=== PATIENT | female | born 1985 | race Caucasian/White ===

== ENCOUNTER → 2016-06-09 | Outpatient (CLI) | payer OTHER ==
[~2016-06-09] MED LIST: ACET-789 PO; ACET473E5 PO; BARIUM SUSPENSION 105% (LIQUID POLIBAR PLUS) 240 ML/DOSE PO ONE; BARIUM SUSPENSION 60% (LIQUID EZ PAQUE) 240 ML DOSE PO ONE; CEFD300C3 PO; CEPH500C PO; FLC1T PO; FOLI0.4T2 PO; FRS325T PO; IBP600T1 PO; IBP800T PO; LEVO1TAB9; LEVO1TAB9 PO; LEVO500T80 PO; MAG355OR55 PO; MECL-106 PO; NORG1TAB15; NYST1000; NYST1000 PO; ONDA4TAB10 PO; ONDA8TAB9 PO; ONDAN4ODT PO; ONDN4T PO; OXYC-109 PO; OXYC-12 PO; OXYC-197 PO; PANT40TA3 PO; PREN1TAB39 PO
--- NOTE | 2016-06-09 10:01 | Diagnostic Imaging Report ---
EXAMINATION: Upper GI study, double contrast. Highway Patrol Officer image of the abdomen was performed. After the oral administration of gas forming granules, the patient drank thick and thin barium with visualization under fluoroscopy, with spot images taken over the esophagus, stomach and duodenum and followed by overhead images in the chest and abdomen. INDICATION: Reflux. FLUOROSCOPY TIME: One minutes and 9 seconds. FINDINGS: Highway Patrol Officer images of the abdomen demonstrate small to moderate amount of fecal material. The esophagus demonstrates normal caliber with no strictures. The mucosal pattern demonstrates no filling defects, diverticulum or ulceration. There is normal relaxation of the distal sphincter. There is no hiatal hernia. The stomach demonstrates normal distensibility with normal appearance of the mucosal folds. There are no ulcers or evidence of mass. The duodenal bulb and sweep appear normal. IMPRESSION: Unremarkable double-contrast upper GI study. Dictated by: Dictated on workstation # [id number]
== END ==
LOC: RAD 08:31
PROVIDERS: ATTEND Surgery Pediatric Surgery
DX: K21.9 Gastro-esophageal reflux disease without esophagitis (principal)
CPT/HCPCS: 74241

== ENCOUNTER 2016-08-27 16:22 | Emergency (ER) | payer OTHER ==
[~2016-08-27] VITALS: Ht 172.7 cm; Wt 108.9 kg
[~2016-08-27 16:22] MED LIST changes: -BARIUM SUSPENSION 105% (LIQUID POLIBAR PLUS) 240 ML/DOSE PO ONE; -BARIUM SUSPENSION 60% (LIQUID EZ PAQUE) 240 ML DOSE PO ONE; -CEFD300C3 PO; -LEVO1TAB9; -LEVO1TAB9 PO; -LEVO500T80 PO; -MECL-106 PO; -NORG1TAB15; -NYST1000; -NYST1000 PO; -ONDA4TAB10 PO; -ONDA8TAB9 PO; -OXYC-197 PO; -PANT40TA3 PO
[2016-08-27 16:51] LABS: BILIRUBIN,URINE NEGATIVE (NEGATIVE); KETONES,URINE 4+ (NEGATIVE); LEUKOCYTE ESTERASE ,URINE 1+ (NEGATIVE); NITRITE,URINE NEGATIVE (NEGATIVE); PH,URINE 6 (5-9); PROTEIN,URINE 2+ (NEGATIVE); UROBILINOGEN,URINE 1 MG/DL (NORMAL)
[2016-08-27] MEDS ORDERED: LEVO500T80 PO (16:56)
[2016-08-27] MEDS ORDERED: PANT40TA3 PO (16:57)
[2016-08-27] MEDS ORDERED: LEVO1TAB9 (16:57)
[2016-08-27] MEDS ORDERED: NYST1000 (16:57)
[2016-08-27 17:02] LABS: CALCIUM OXALATE CRYSTALS,UR FEW /LPF; SQUAMOUS EPITHELIAL CELL,UR 25-50 /HPF
[2016-08-27 17:19] LABS: BASOPHILS % (AUTO) 0 % (0-10); EOSINOPHILS # (AUTO) 0.1 10^3/uL (0.0-0.3); EOSINOPHILS % (AUTO) 1 % (0-10); LYMPHOCYTES # (AUTO) 3.2 X 10^3 (1.0-4.0); LYMPHOCYTES % (AUTO) 49 % (12-44); MEAN CORPUSCULAR HEMOGLOBIN 29 PG (25-34); MEAN CORPUSCULAR HGB CONC 33 G/DL (32-36); MEAN CORPUSCULAR VOLUME 86 FL (80-99); MEAN PLATELET VOLUME 11.8 FL (7.4-10.4); MONOCYTES # (AUTO) 0.6 X 10^3 (0.0-1.0); MONOCYTES % (AUTO) 9 % (0-12); NEUTROPHILS # (AUTO) 2.7 X 10^3 (1.8-7.8); NEUTROPHILS % (AUTO) 41 % (42-75); PLATELET COUNT 283 10^3/uL (130-400); RED BLOOD COUNT 4.69 10^6/uL (4.35-5.85); RED CELL DISTRIBUTION WIDTH 12.6 % (10.0-14.5); WHITE BLOOD COUNT 6.5 10^3/uL (4.3-11.0)
--- NOTE | 2016-08-27 17:27 | ED Back Pain ---
General Chief Complaint: Back Problems Stated Complaint: BACK PAIN Source of Information: Patient Exam Limitations: No Limitations History of Present Illness Time Seen by Provider: 17:24 Initial Comments The patient is a 31-year-old white female who presents with complaints of left flank pain and chills. She reports that the symptoms have been present since Tuesday. She was diagnosed as having a urinary tract infection elsewhere and given Levaquin. There is been no improvement in symptoms. There is no previous history of kidney stones. She is not on her period. Timing/Duration: 4-5 Days Pain/Injury Location: Back Method of Injury: Other Allergies and Home Medications Allergies Coded Allergies: Penicillins (Verified Allergy, 02/28/12) RASH Home Medications Ferrous Sulfate 325 Mg Tablet, 1 TAB PO BID, #30 (Reported) Levofloxacin 500 Mg Tablet, 500 MG PO DAILY, #7 (Reported) Levonorgestrel-Ethin Estradiol 1 Each Tablet, #28 (Reported) Nystatin 100,000 Unit/1 Ml Oral.susp, #250 (Reported) Oxycodone Hcl/Acetaminophen 1 Each Tablet, 1 EACH PO Q4H, #20 As needed for breakthrough pain Prescribed by: FRANCISCO SEGURA on 02/22/122107 Pantoprazole Sodium 40 Mg Tablet., #30 (Reported) Vits W-Ca,Fe,Fa(<1MG) 1 Each Tablet, 1 EACH PO DAILY, (Reported) Constitutional: see HPI EENTM: no symptoms reported Respiratory: no symptoms reported Cardiovascular: no symptoms reported Gastrointestinal: no symptoms reported Genitourinary: see HPI Musculoskeletal: no symptoms reported Skin: no symptoms reported Psychiatric/Neurological: No Symptoms Reported Past Qiuzbyg-Ddyias-Adydgx Hx Patient Social History Recent Foreign Travel: No Contact w/Someone Who Travel: No Immunizations Up To Date Date of Influenza Vaccine: Feb 22, 2012 Respiratory Hx Respiratory Disorders: Yes (Influenza) Cardiovascular Hx Cardiac Disorders: No Neurological Hx Neurological Disorders: No Reproductive System Hx Reproductive Disorders: No Genitourinary Hx Genitourinary Disorders: Yes (bladder infection with current 2011) Gastrointestinal Hx Gastrointestinal Disorders: Yes (gall stones) Musculoskeletal Hx Musculoskeletal Disorders: No Endocrine Hx Endocrine Disorders: No HEENT HX ENT Disorders: No Psychosocial Hx Psychiatric Problems: No Blood Transfusions Hx Blood Disorders: Yes Physical Exam Vital Signs Capillary Refill : General Appearance: Mild Distress HEENT: Normal ENT Inspection Neck: Normal Inspection Cardiovascular: Regular Rate, Rhythm, No Edema, No Gallop, No JVD, No Murmur, Normal Peripheral Pulses Respiratory: Chest Non Tender, Lungs Clear, Normal Breath Sounds, No Accessory Muscle Use, No Respiratory Distress, Accessory Muscle Use Gastrointestinal: Normal Bowel Sounds, No Organomegaly, No Pulsatile Mass, Non Tender, Soft Back: CVA Tenderness (L) Neurologic/Psychiatric: Alert, Oriented x3, No Motor/Sensory Deficits, Normal Mood/Affect, 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 II-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 Norm as Tested, Abnormal Cerebellar Tests Skin: Normal Color, Warm/Dry, Cool, Cyanosis Progress/Results/Core Measures Results/Orders Lab Results Laboratory Tests Test 08/27/16 16:10 08/27/16 17:12 Range/Units Urine Color YELLOW Urine Clarity SLIGHTLY CLOUDY Urine pH 6 5-9 Urine Specific [place] 1.025 H 1.016-1.022 Urine Protein 2+ H NEGATIVE Urine Glucose (UA) NEGATIVE NEGATIVE Urine Ketones 4+ H NEGATIVE Urine Nitrite NEGATIVE NEGATIVE Urine Bilirubin NEGATIVE NEGATIVE Urine Urobilinogen 1 NORMAL MG/DL Urine Leukocyte Esterase 1+ H NEGATIVE Urine RBC (Auto) 5+ H NEGATIVE Urine RBC 25-50 H /HPF Urine WBC 5-10 H /HPF Urine Squamous Epithelial Cells 25-50 H /HPF Urine Crystals PRESENT H /LPF Urine Calcium Oxalate Crystals FEW H /LPF Urine Bacteria MODERATE H /HPF Urine Casts NONE /LPF Urine Mucus LARGE H /LPF Urine Culture Indicated YES White Blood Count 6.5 4.3-11.0 10^3/uL Red Blood Count 4.69 4.35-5.85 10^6/uL Hemoglobin 13.4 11.5-16.0 G/DL Hematocrit 40 35-52 % Mean Corpuscular Volume 86 80-99 FL Mean Corpuscular Hemoglobin 29 25-34 PG Mean Corpuscular Hemoglobin Concent 33 32-36 G/DL Red Cell Distribution Width 12.6 10.0-14.5 % Platelet Count 283 130-400 10^3/uL Mean Platelet Volume 11.8 H 7.4-10.4 FL Neutrophils (%) (Auto) 41 L 42-75 % Lymphocytes (%) (Auto) 49 H 12-44 % Monocytes (%) (Auto) 9 0-12 % Eosinophils (%) (Auto) 1 0-10 % Basophils (%) (Auto) 0 0-10 % Neutrophils # (Auto) 2.7 1.8-7.8 X 10^3 Lymphocytes # (Auto) 3.2 1.0-4.0 X 10^3 Monocytes # (Auto) 0.6 0.0-1.0 X 10^3 Eosinophils # (Auto) 0.1 0.0-0.3 10^3/uL Basophils # (Auto) 0.0 0.0-0.1 10^3/uL My Orders Orders - JCARLOS ROQUE MD Ua Culture If Indicated (08/27/16 16:44) Cbc With Automated Diff (08/27/16 16:56) Urine Culture (08/27/16 16:10) Ct Abd/Pelvis Wo(Kidney Stone) (08/27/16 17:17) Departure Communication Progress Notes CT scan by my reading shows no evidence of ureteral stones or hydroureter. There appeared to be several stones in the kidney proper. Impression Impression: Primary Impression: urinary tract infection Disposition: 01 HOME, SELF-CARE Condition: Stable/Unchanged Departure-Patient Inst. Decision time for Depature: 17:57 Referrals: MAURICIO KLEIN MD (PCP/Family) Primary Care Physician Add. Discharge Instructions: All discharge instructions reviewed with patient and/or family. Voiced understanding. Take Omnicef as directed. Use Motrin 60 for fever and discomfort 4 times daily or Tylenol 650 every 4 hours. Scripts Cefdinir (Cefdinir) 300 Mg Capsule 300 MG PO twice a day, #14 CAP Prov: JCARLOS ROQUE MD 08/27/16 JCARLOS ROQUE MD Aug 27, 2016 17:27
--- NOTE | 2016-08-27 17:56 | Diagnostic Imaging Report ---
PROCEDURE: CT urinary tract, rule out kidney stone. TECHNIQUE: Multiple contiguous axial images were obtained through the abdomen and pelvis without the use of intravenous contrast. INDICATION: Left flank pain, hematuria. FINDINGS: The lung bases are clear. There are small areas of decreased density in the anterior surface of the liver adjacent to the falciform ligament which are probably hemangiomas. The gallbladder is surgically absent. There is some induration around the anterior aspect of the head of the pancreas with a small exophytic cystic mass 2 cm in diameter adjacent to the head of the pancreas. This could represent a focal pancreatitis. Body and tail of the pancreas are unremarkable. The spleen is not enlarged. Adrenals appear normal. There is a 1 mm calculus in the lower pole calyx of the right kidney and a 1 mm calculus in an upper pole calyx of the right kidney. There are 6 calculi in left kidney. The largest of these are in the lower pole measuring 3 mm in diameter. The other is about 1 mm in diameter in the upper and interpolar calyces. There is no hydronephrosis. Ureters are clear. Urinary bladder is normal. Uterus is normal. There is a 2.5 cm right ovarian cyst. Small bowel is not dilated. The appendix is normal. The colon appears normal. There is no intraperitoneal free air or free fluid. IMPRESSION: Bilateral nephrolithiasis but no evidence of obstruction. Postop changes from a gastric stapling procedure. There is inflammatory change in the anterior surface of the head of the pancreas suspicious for pancreatitis. Correlation with enzyme study is recommended. Dictated by: Dictated on workstation # [id number]
[2016-08-27] MEDS ORDERED: LIDOCAINE 1% INJ 20 ML (XYLOCAINE) VIAL INJ ONE (18:00)
[2016-08-27] MEDS ORDERED: cefTRIAXone 1 GM (ROCEPHIN) VIAL IM ONE (18:00)
[2016-08-27] MEDS ORDERED: CEFD300C3 PO (18:00)
[2016-08-27 18:53] VITALS: BP 120/78
--- OUTSIDE RECORDS SUMMARY | 2016-09-30 22:27 | XMS REPORT | Continuity of Care Document ---
Demographics Preferred Language Unknown Marital Status Unknown Scientologist Affiliation Unknown Race Unknown Ethnic Group Unknown Author Author [facility] Address Unknown Phone Unavailable Allergies Active Description Code Type Severity Reaction Onset Reported/Identified Relationship to Patient Clinical Status Yes Penicillins [id number] Drug Allergy Unknown N/A 08/29/2016 Medications Problems Date Dx Coded Attending Type Code Diagnosis Diagnosed By 08/25/2012 V74.1 TB SCREENING 08/29/2014 Ot 574.20 08/29/2014 Ot V72.84 08/29/2014 Ot V74.8 06/09/2016 Ot 574.20 CHOLELITHIASIS NOS 06/09/2016 Ot V72.84 EXAM PRE-OPERATIVE NOS 06/09/2016 Ot V74.8 SCREEN-BACTERIAL DIS NEC 06/10/2016 BREANA STINSON, LIDIA Ot K21.9 GASTRO-ESOPHAGEAL REFLUX DISEASE WITHOUT 06/15/2016 LIDIA TOUSSAINT MD Ot K21.9 GASTRO-ESOPHAGEAL REFLUX DISEASE WITHOUT 07/08/2016 LIDIA TOUSSAINT MD, Ot K21.9 GASTRO-ESOPHAGEAL REFLUX DISEASE WITHOUT 08/27/2016 Ot 574.20 CHOLELITHIASIS NOS 08/27/2016 Ot V72.84 EXAM PRE-OPERATIVE NOS 08/27/2016 Ot V74.8 SCREEN-BACTERIAL DIS NEC 08/27/2016 LIDIA TOUSSAINT MD Ot K21.9 GASTRO-ESOPHAGEAL REFLUX DISEASE WITHOUT 08/27/2016 JCARLOS ROQUE MD Ot N20.0 CALCULUS OF KIDNEY 08/27/2016 JCARLOS ROQUE MD Ot N30.91 CYSTITIS, UNSPECIFIED WITH HEMATURIA 08/27/2016 JCARLOS ROQUE MD Ot R10.32 LEFT LOWER QUADRANT PAIN 08/30/2016 JCARLOS ROQUE MD Ot N20.0 CALCULUS OF KIDNEY 08/30/2016 JCARLOS ROQUE MD Ot N30.91 CYSTITIS, UNSPECIFIED WITH HEMATURIA 08/30/2016 JCARLOS ROQUE MD Ot R10.32 LEFT LOWER QUADRANT PAIN 08/31/2016 BENJI CHRISTIANSON MD Ot E86.0 DEHYDRATION 08/31/2016 BENJI CHRISTIANSON MD Ot H81.10 BENIGN PAROXYSMAL VERTIGO, UNSPECIFIED E 08/31/2016 BENJI CHRISTIANSON MD, Ot K85.90 ACUTE PANCREATITIS WITHOUT NECROSIS OR I 08/31/2016 BENJI CHRISTIANSON MD, Ot N20.0 CALCULUS OF KIDNEY 09/03/2016 Ot 574.20 CHOLELITHIASIS NOS 09/03/2016 Ot V72.84 EXAM PRE-OPERATIVE NOS 09/03/2016 Ot V74.8 SCREEN-BACTERIAL DIS NEC 09/03/2016 LIDIA TOUSSAINT MD Ot K21.9 GASTRO-ESOPHAGEAL REFLUX DISEASE WITHOUT 09/16/2016 BENJI CHRISTIANSON MD Ot E86.0 DEHYDRATION 09/16/2016 BENJI CHRISTIANSON MD, Ot H81.10 BENIGN PAROXYSMAL VERTIGO, UNSPECIFIED E 09/16/2016 BENJI CHRISTIANSON MD, Ot K85.90 ACUTE PANCREATITIS WITHOUT NECROSIS OR I 09/16/2016 BENJI CHRISTIANSON MD, Ot N20.0 CALCULUS OF KIDNEY Procedures Code [place] [address] TB TEST INTRADERMAL 08/25/2012 Results Test Result Range Complete urinalysis with reflex to culture - 08/27/16 16:10 Urine color determination YELLOW NRG Urine clarity determination SLIGHTLY CLOUDY NRG Urine pH measurement by test strip 6 5- 9 Specific gravity of urine by test strip 1.025 1.016-1.022 Urine protein assay by test strip, semi-quantitative 2+ NEGATIVE Urine glucose detection by automated test strip NEGATIVE NEGATIVE Erythrocytes detection in urine sediment by light microscopy 5+ NEGATIVE Urine ketones detection by automated test strip 4+ NEGATIVE Urine nitrite detection by test strip NEGATIVE NEGATIVE Urine total bilirubin detection by test strip NEGATIVE NEGATIVE Urine urobilinogen measurement by automated test strip (mass/volume) 1 mg/dL NORMAL Urine leukocyte esterase detection by dipstick 1+ NEGATIVE Automated urine sediment erythrocyte count by microscopy (number/high power field) [HPF] NRG Automated urine sediment leukocyte count by microscopy (number/high power field ) [HPF] NRG Bacteria detection in urine sediment by light microscopy MODERATE NRG Squamous epithelial cells detection in urine sediment by light microscopy 25-50 NRG Crystals detection in urine sediment by light microscopy PRESENT NRG Casts detection in urine sediment by light microscopy NONE NRG Mucus detection in urine sediment by light microscopy LARGE NRG Complete urinalysis with reflex to culture YES NRG Calcium oxalate crystals detection in urine sediment by light microscopy FEW NRG Bacterial urine culture - 08/27/16 16:10 URINE CULTURE RESULTS <10,000/ML NRG Complete blood count (CBC) with automated white blood cell (WBC) differential - 08/27/16 17:12 Blood leukocytes automated count (number/volume) 6.5 10*3/ uL 4.3-11.0 Blood erythrocytes automated count (number/volume) 4.69 10*6 /uL 4.35-5.85 Venous blood hemoglobin measurement (mass/volume) 13.4 g/dL 11.5-16.0 Blood hematocrit (volume fraction) 40 % 35-52 Automated erythrocyte mean corpuscular volume 86 [foz_us] 80-99 Automated erythrocyte mean corpuscular hemoglobin (mass per erythrocyte) 29 pg 25-34 Automated erythrocyte mean corpuscular hemoglobin concentration measurement ( mass/volume) 33 g/dL 32-36 Automated erythrocyte distribution width ratio 12.6 % 10.0-14.5 Automated blood platelet count (count/volume) 283 10*3/uL 130-400 Automated blood platelet mean volume measurement 11.8 [foz_ us] 7.4-10.4 Automated blood neutrophils/100 leukocytes 41 % 42-75 Automated blood lymphocytes/100 leukocytes 49 % 12-44 Blood monocytes/100 leukocytes 9 % 0-12 Automated blood eosinophils/100 leukocytes 1 % 0-10 Automated blood basophils/100 leukocytes 0 % 0-10 Blood neutrophils automated count (number/volume) 2.7 10*3 1.8-7.8 Blood lymphocytes automated count (number/volume) 3.2 10*3 1.0-4.0 Blood monocytes automated count (number/volume) 0.6 10*3 0.0-1.0 Automated eosinophil count 0.1 10*3/uL 0.0-0.3 Automated blood basophil count (count/volume) 0.0 10*3/uL 0.0-0.1 Complete urinalysis with reflex to culture - 08/29/16 17:15 Urine color determination YELLOW NRG Urine clarity determination SLIGHTLY CLOUDY NRG Urine pH measurement by test strip 6 5- 9 Specific gravity of urine by test strip 1.025 1.016-1.022 Urine protein assay by test strip, semi-quantitative 2+ NEGATIVE Urine glucose detection by automated test strip NEGATIVE NEGATIVE Erythrocytes detection in urine sediment by light microscopy 3+ NEGATIVE Urine ketones detection by automated test strip 4+ NEGATIVE Urine nitrite detection by test strip NEGATIVE NEGATIVE Urine total bilirubin detection by test strip NEGATIVE NEGATIVE Urine urobilinogen measurement by automated test strip (mass/volume) 1 mg/dL NORMAL Urine leukocyte esterase detection by dipstick 1+ NEGATIVE Automated urine sediment erythrocyte count by microscopy (number/high power field) [HPF] NRG Automated urine sediment leukocyte count by microscopy (number/high power field ) [HPF] NRG Bacteria detection in urine sediment by light microscopy FEW NRG Squamous epithelial cells detection in urine sediment by light microscopy 25-50 NRG Crystals detection in urine sediment by light microscopy PRESENT NRG Casts detection in urine sediment by light microscopy NONE NRG Mucus detection in urine sediment by light microscopy NEGATIVE NRG Complete urinalysis with reflex to culture NO NRG Calcium oxalate crystals detection in urine sediment by light microscopy FEW NRG Complete blood count (CBC) with automated white blood cell (WBC) differential - 08/29/16 17:30 Blood leukocytes automated count (number/volume) 6.6 10*3/ uL 4.3-11.0 Blood erythrocytes automated count (number/volume) 4.54 10*6 /uL 4.35-5.85 Venous blood hemoglobin measurement (mass/volume) 13.0 g/dL 11.5-16.0 Blood hematocrit (volume fraction) 39 % 35-52 Automated erythrocyte mean corpuscular volume 86 [foz_us] 80-99 Automated erythrocyte mean corpuscular hemoglobin (mass per erythrocyte) 29 pg 25-34 Automated erythrocyte mean corpuscular hemoglobin concentration measurement ( mass/volume) 34 g/dL 32-36 Automated erythrocyte distribution width ratio 12.5 % 10.0-14.5 Automated blood platelet count (count/volume) 238 10*3/uL 130-400 Automated blood platelet mean volume measurement 11.8 [foz_ us] 7.4-10.4 Automated blood neutrophils/100 leukocytes 59 % 42-75 Automated blood lymphocytes/100 leukocytes 33 % 12-44 Blood monocytes/100 leukocytes 6 % 0-12 Automated blood eosinophils/100 leukocytes 1 % 0-10 Automated blood basophils/100 leukocytes 0 % 0-10 Blood neutrophils automated count (number/volume) 3.9 10*3 1.8-7.8 Blood lymphocytes automated count (number/volume) 2.2 10*3 1.0-4.0 Blood monocytes automated count (number/volume) 0.4 10*3 0.0-1.0 Automated eosinophil count 0.1 10*3/uL 0.0-0.3 Automated blood basophil count (count/volume) 0.0 10*3/uL 0.0-0.1 Serum or plasma choriogonadotropin ( test) detection - 08/29/16 17:30 Serum or plasma choriogonadotropin ( test) detection NEGATIVE NEGATIVE Comprehensive metabolic panel - 08/29/16 17:30 Serum or plasma sodium measurement (moles/volume) 140 mmol/ L 135-145 Serum or plasma potassium measurement (moles/volume) 3.4 mmol/L 3.6-5.0 Serum or plasma chloride measurement (moles/volume) 103 mmol /L 98-107 Carbon dioxide 15 mmol/L 21-32 Serum or plasma anion gap determination (moles/volume) 22 mmol/L 5-14 Serum or plasma urea nitrogen measurement (mass/volume) 6 mg /dL 7-18 Serum or plasma creatinine measurement (mass/volume) 0.79 mg /dL 0.60-1.30 Serum or plasma urea nitrogen/creatinine mass ratio 8 NRG Serum or plasma creatinine measurement with calculation of estimated glomerular filtration rate > NRG Serum or plasma glucose measurement (mass/volume) 77 mg/dL 70-105 Serum or plasma calcium measurement (mass/volume) 8.9 mg/dL 8.5-10.1 Serum or plasma total bilirubin measurement (mass/volume) 0.5 mg/dL 0.1-1.0 Serum or plasma alkaline phosphatase measurement (enzymatic activity/volume) 60 U/L 40-136 Serum or plasma aspartate aminotransferase measurement (enzymatic activity/ volume) 57 U/L 5-34 Serum or plasma alanine aminotransferase measurement (enzymatic activity/volume ) 77 U/L 0-55 Serum or plasma protein measurement (mass/volume) 7.0 g/dL 6.4-8.2 Serum or plasma albumin measurement (mass/volume) 4.2 g/dL 3.2-4.5 Lipid 1996 panel - 08/29/16 17:30 Serum or plasma triglyceride measurement (mass/volume) 78 mg /dL <150 Serum or plasma cholesterol measurement (mass/volume) 114 mg /dL < 200 Serum or plasma cholesterol in HDL measurement (mass/volume) 48 mg/dL 40-60 Cholesterol in LDL [mass/volume] in serum or plasma by direct assay 44 mg/dL 1-129 Serum or plasma cholesterol in VLDL measurement (mass/volume) 16 mg/dL 5-40 Serum or plasma amylase measurement (enzymatic activity/volume) - 08/29/16 17: 30 Serum or plasma amylase measurement (enzymatic activity/volume) 53 U/L 25-125 Lipase - 08/29/16 17:30 Lipase 53 U/L 8-78 Acute hepatitis panel - 08/29/16 17:30 Confirmatory quantitative serum or plasma hepatitis B virus surface antigen measurement Non-Reactive Non-Reactive Hepatitis A virus IgM antibody assay Non-Reactive Non-Reactive Hepatitis B virus core IgM antibody assay Non-Reactive Non-Reactive Serum hepatitis C virus antibody detection Non-Reactive Non-Reactive Complete blood count (CBC) with automated white blood cell (WBC) differential - 08/30/16 05:24 Blood leukocytes automated count (number/volume) 4.5 10*3/ uL 4.3-11.0 Blood erythrocytes automated count (number/volume) 3.85 10*6 /uL 4.35-5.85 Venous blood hemoglobin measurement (mass/volume) 11.0 g/dL 11.5-16.0 Blood hematocrit (volume fraction) 34 % 35-52 Automated erythrocyte mean corpuscular volume 87 [foz_us] 80-99 Automated erythrocyte mean corpuscular hemoglobin (mass per erythrocyte) 29 pg 25-34 Automated erythrocyte mean corpuscular hemoglobin concentration measurement ( mass/volume) 33 g/dL 32-36 Automated erythrocyte distribution width ratio 12.6 % 10.0-14.5 Automated blood platelet count (count/volume) 222 10*3/uL 130-400 Automated blood platelet mean volume measurement 12.6 [foz_ us] 7.4-10.4 Automated blood neutrophils/100 leukocytes 26 % 42-75 Automated blood lymphocytes/100 leukocytes 63 % 12-44 Blood monocytes/100 leukocytes 9 % 0-12 Automated blood eosinophils/100 leukocytes 2 % 0-10 Automated blood basophils/100 leukocytes 0 % 0-10 Blood neutrophils automated count (number/volume) 1.2 10*3 1.8-7.8 Blood lymphocytes automated count (number/volume) 2.8 10*3 1.0-4.0 Blood monocytes automated count (number/volume) 0.4 10*3 0.0-1.0 Automated eosinophil count 0.1 10*3/uL 0.0-0.3 Automated blood basophil count (count/volume) 0.0 10*3/uL 0.0-0.1 Comprehensive metabolic panel - 08/30/16 05:24 Serum or plasma sodium measurement (moles/volume) 141 mmol/ L 135-145 Serum or plasma potassium measurement (moles/volume) 3.6 mmol/L 3.6-5.0 Serum or plasma chloride measurement (moles/volume) 111 mmol /L 98-107 Carbon dioxide 15 mmol/L 21-32 Serum or plasma anion gap determination (moles/volume) 15 mmol/L 5-14 Serum or plasma urea nitrogen measurement (mass/volume) 4 mg /dL 7-18 Serum or plasma creatinine measurement (mass/volume) 0.71 mg /dL 0.60-1.30 Serum or plasma urea nitrogen/creatinine mass ratio 6 NRG Serum or plasma creatinine measurement with calculation of estimated glomerular filtration rate > NRG Serum or plasma glucose measurement (mass/volume) 68 mg/dL 70-105 Serum or plasma calcium measurement (mass/volume) 8.1 mg/dL 8.5-10.1 Serum or plasma total bilirubin measurement (mass/volume) 0.3 mg/dL 0.1-1.0 Serum or plasma alkaline phosphatase measurement (enzymatic activity/volume) 41 U/L 40-136 Serum or plasma aspartate aminotransferase measurement (enzymatic activity/ volume) 32 U/L 5-34 Serum or plasma alanine aminotransferase measurement (enzymatic activity/volume ) 54 U/L 0-55 Serum or plasma protein measurement (mass/volume) 5.4 g/dL 6.4-8.2 Serum or plasma albumin measurement (mass/volume) 3.2 g/dL 3.2-4.5 Automated blood complete blood count (hemogram) panel - 08/31/16 05:48 Blood leukocytes automated count (number/volume) 3.5 10*3/ uL 4.3-11.0 Blood erythrocytes automated count (number/volume) 4.01 10*6 /uL 4.35-5.85 Venous blood hemoglobin measurement (mass/volume) 11.5 g/dL 11.5-16.0 Blood hematocrit (volume fraction) 35 % 35-52 Automated erythrocyte mean corpuscular volume 87 [foz_us] 80-99 Automated erythrocyte mean corpuscular hemoglobin (mass per erythrocyte) 29 pg 25-34 Automated erythrocyte mean corpuscular hemoglobin concentration measurement ( mass/volume) 33 g/dL 32-36 Automated erythrocyte distribution width ratio 12.7 % 10.0-14.5 Automated blood platelet count (count/volume) 192 10*3/uL 130-400 Automated blood platelet mean volume measurement 12.5 [foz_ us] 7.4-10.4 Comprehensive metabolic panel - 08/31/16 05:48 Serum or plasma sodium measurement (moles/volume) 140 mmol/ L 135-145 Serum or plasma potassium measurement (moles/volume) 3.8 mmol/L 3.6-5.0 Serum or plasma chloride measurement (moles/volume) 110 mmol /L 98-107 Carbon dioxide 14 mmol/L 21-32 Serum or plasma anion gap determination (moles/volume) 16 mmol/L 5-14 Serum or plasma urea nitrogen measurement (mass/volume) 2 mg /dL 7-18 Serum or plasma creatinine measurement (mass/volume) 0.69 mg /dL 0.60-1.30 Serum or plasma urea nitrogen/creatinine mass ratio 3 NRG Serum or plasma creatinine measurement with calculation of estimated glomerular filtration rate > NRG Serum or plasma glucose measurement (mass/volume) 76 mg/dL 70-105 Serum or plasma calcium measurement (mass/volume) 8.2 mg/dL 8.5-10.1 Serum or plasma total bilirubin measurement (mass/volume) 0.3 mg/dL 0.1-1.0 Serum or plasma alkaline phosphatase measurement (enzymatic activity/volume) 46 U/L 40-136 Serum or plasma aspartate aminotransferase measurement (enzymatic activity/ volume) 27 U/L 5-34 Serum or plasma alanine aminotransferase measurement (enzymatic activity/volume ) 50 U/L 0-55 Serum or plasma protein measurement (mass/volume) 5.5 g/dL 6.4-8.2 Serum or plasma albumin measurement (mass/volume) 3.4 g/dL 3.2-4.5 Encounters ACCT No. Visit Date/Time Discharge Status Pt. Type Provider Facility Loc./Unit Complaint [id number] 08/25/2012 15:48:00 08/25/2012 23: 59:59 CLS Outpatient
== END 2016-08-27 18:53 | disposition home or self-care (01) ==
LOC: EDUNIT# 16:22 → ER 16:25
DX: N30.91 Cystitis, unspecified with hematuria (principal); N20.0 Calculus of kidney
CPT/HCPCS: 36415; 74176; 81000; 85025; 87088; 96372; 99281; 99282

== ENCOUNTER 2016-08-29 16:27 | Inpatient (IN) | payer OTHER ==
[~2016-08-29] VITALS: Ht 162.6 cm; Wt 90.7 kg
[~2016-08-29 16:27] MED LIST changes: +CEFD300C3 PO; +LEVO1TAB9; +LEVO500T80 PO; +NYST1000; +PANT40TA3 PO
[2016-08-29] MEDS ORDERED: NS IV 500 ML 500 ML IV ONE (16:51)
[2016-08-29] MEDS ORDERED: fentaNYL INJECTION 100 MCG/2 ML AMP IVP STA (16:51)
--- NOTE | 2016-08-29 16:51 | ED GI ---
General Chief Complaint: Abdominal/GI Problems Stated Complaint: KIDNEY STONES/VOMITING/L SIDE PAIN Source of Information: Patient, Family (mom), Old Records Exam Limitations: No Limitations NPO Since: 1630 History of Present Illness Time Seen By Provider: 16:43 Initial Comments Patient presents with approximately 10 day history of abdominal pain nausea, vomiting and was seen in the ER approximately 2 days ago diagnosed with urinary tract infection and kidney stones on CT. Also seen on CT was some inflammation at the tail the pancreas which may correlate to a pancreatitis. The patient now describes the past 2 days she's had some bruising and a line along the epigastrium and down the left costo margin. She denies any history of alcoholism , binge drinking or recent drinking in the past 6 weeks. She does have an occasional alcoholic drink. She denies diabetes or cholesterol problems. She 2 weeks ago did have a sleeve gastrectomy by Dr. Mckeon. She has been able to keep down her antibiotics more less but the nausea meds do not work very well for her. She states she has not been able to keep up with her drinking and has not had a bowel movement in over a week. Allergies and Home Medications Allergies Coded Allergies: Penicillins (Verified Allergy, 02/28/12) RASH Home Medications Cefdinir 300 Mg Capsule, 300 MG PO twice a day, #14 Prescribed by: JCARLOS ROQUE on 08/27/16 1800 Ferrous Sulfate 325 Mg Tablet, 1 TAB PO BID, #30 (Reported) Norgestimate-Ethinyl Estradiol 1 Each Tablet, #28 (Reported) Ondansetron HCl 4 Mg Tablet, #60 (Reported) Oxycodone Hcl/Acetaminophen 1 Each Tablet, 1 EACH PO Q4H, #20 As needed for breakthrough pain Prescribed by: FRANCISCO SEGURA on 02/22/128 Pantoprazole Sodium 40 Mg Tablet., #30 (Reported) Review of Systems Constitutional: No chills, No diaphoresis, dizziness, No fever, malaise, weakness EENTM: No Ear Pain, No Nose Congestion Respiratory: Denies Cough, Denies Shortness of Air Cardiovascular: Denies Chest Pain, Lightheadedness, Denies Syncope Gastrointestinal: Abdomen Distended, Abdominal Pain, Constipated, Nausea, Poor Appetite, Poor Fluid Intake, Vomiting Genitourinary: Denies Burning, Denies Discharge Musculoskeletal: No joint pain, No joint swelling Skin: change in color, No pruritus, No rash Psychiatric/Neurological: Denies Headache, Denies Numbness Past Cqwjmmu-Wpbfkz-Jvzcxk Hx Patient Social History Alcohol Use: Rarely Uses Recreational Drug Use: No Recent Foreign Travel: No Contact w/Someone Who Travel: No Recent Hopitalizations: Yes (GASTRIC SLEEVE) Immunizations Up To Date Date of Influenza Vaccine: Feb 22, 2012 Surgeries HX Surgeries: Yes (GASTRIC SLEEVE) Surgeries: Section Respiratory Hx Respiratory Disorders: No Cardiovascular Hx Cardiac Disorders: No Neurological Hx Neurological Disorders: No Reproductive System Hx Reproductive Disorders: No Genitourinary Hx Genitourinary Disorders: No Gastrointestinal Hx Gastrointestinal Disorders: No Musculoskeletal Hx Musculoskeletal Disorders: No Endocrine Hx Endocrine Disorders: No HEENT HX ENT Disorders: No Cancer Hx Cancer: No Psychosocial Hx Psychiatric Problems: No Blood Transfusions Hx Blood Disorders: No Physical Exam Vital Signs VS - Last 72 Hours, by Label 08/29/16 16:30 Temp 99.2 Pulse 93 Resp 18 B/P (MAP) 147/81 Pulse Ox 100 Capillary Refill : General Appearance: WD/WN, mild distress, obese HEENT: PERRL/EOMI, normal ENT inspection, TMs normal, pharynx normal Neck: non-tender, full range of motion, supple, normal inspection Respiratory: chest non-tender, lungs clear, normal breath sounds, no respiratory distress, no accessory muscle use Cardiovascular: normal peripheral pulses, regular rate, rhythm, no edema Peripheral Pulses: 4+ Radial Pulses (R), 4+ Radial Pulses (L) Gastrointestinal: normal bowel sounds, soft, no organomegaly, no pulsatile mass , tenderness (Epigastric) Extremities: non-tender, normal inspection, no pedal edema Back: normal inspection, CVA tenderness (R), CVA tenderness (L) Neurologic/Psychiatric: alert, oriented x 3 Skin: normal color, warm/dry Progress/Results/Core Measures Results/Orders Lab Results Laboratory Tests Test 08/29/16 17:15 08/29/16 17:30 Range/Units Urine Color YELLOW Urine Clarity SLIGHTLY CLOUDY Urine pH 6 5-9 Urine Specific [place] 1.025 H 1.016-1.022 Urine Protein 2+ H NEGATIVE Urine Glucose (UA) NEGATIVE NEGATIVE Urine Ketones 4+ H NEGATIVE Urine Nitrite NEGATIVE NEGATIVE Urine Bilirubin NEGATIVE NEGATIVE Urine Urobilinogen 1 NORMAL MG/DL Urine Leukocyte Esterase 1+ H NEGATIVE Urine RBC (Auto) 3+ H NEGATIVE Urine RBC 5-10 H /HPF Urine WBC 2-5 /HPF Urine Squamous Epithelial Cells 25-50 H /HPF Urine Crystals PRESENT H /LPF Urine Calcium Oxalate Crystals FEW H /LPF Urine Bacteria FEW H /HPF Urine Casts NONE /LPF Urine Mucus NEGATIVE /LPF Urine Culture Indicated NO White Blood Count 6.6 4.3-11.0 10^3/uL Red Blood Count 4.54 4.35-5.85 10^6/uL Hemoglobin 13.0 11.5-16.0 G/DL Hematocrit 39 35-52 % Mean Corpuscular Volume 86 80-99 FL Mean Corpuscular Hemoglobin 29 25-34 PG Mean Corpuscular Hemoglobin Concent 34 32-36 G/DL Red Cell Distribution Width 12.5 10.0-14.5 % Platelet Count 238 130-400 10^3/uL Mean Platelet Volume 11.8 H 7.4-10.4 FL Neutrophils (%) (Auto) 59 42-75 % Lymphocytes (%) (Auto) 33 12-44 % Monocytes (%) (Auto) 6 0-12 % Eosinophils (%) (Auto) 1 0-10 % Basophils (%) (Auto) 0 0-10 % Neutrophils # (Auto) 3.9 1.8-7.8 X 10^3 Lymphocytes # (Auto) 2.2 1.0-4.0 X 10^3 Monocytes # (Auto) 0.4 0.0-1.0 X 10^3 Eosinophils # (Auto) 0.1 0.0-0.3 10^3/uL Basophils # (Auto) 0.0 0.0-0.1 10^3/uL Sodium Level 140 135-145 MMOL/L Potassium Level 3.4 L 3.6-5.0 MMOL/L Chloride Level 103 98-107 MMOL/L Carbon Dioxide Level 15 L 21-32 MMOL/L Anion Gap 22 H 5-14 MMOL/L Blood Urea Nitrogen 6 L 7-18 MG/DL Creatinine 0.79 0.60-1.30 MG/DL Estimat Glomerular Filtration Rate > 60 BUN/Creatinine Ratio 8 Glucose Level 77 70-105 MG/DL Calcium Level 8.9 8.5-10.1 MG/DL Total Bilirubin 0.5 0.1-1.0 MG/DL Aspartate Amino Transf (AST/SGOT) 57 H 5-34 U/L Alanine Aminotransferase (ALT/SGPT) 77 H 0-55 U/L Alkaline Phosphatase 60 40-136 U/L Total Protein 7.0 6.4-8.2 G/DL Albumin 4.2 3.2-4.5 G/DL Triglycerides Level 78 <150 MG/DL Cholesterol Level 114 < 200 MG/DL LDL Cholesterol Direct 44 1-129 MG/DL VLDL Cholesterol 16 5-40 MG/DL HDL Cholesterol 48 40-60 MG/DL Amylase Level 53 25-125 U/L Lipase 53 8-78 U/L Serum Test, Qualitative NEGATIVE NEGATIVE My Orders Orders - JERE LEIGH Fentanyl Injection (Sublimaze Injection (08/29/16 16:52) Ondansetron Injection (Zofran Injectio (08/29/16 16:52) Saline Lock/Iv-Start (08/29/16 16:51) Amylase (08/29/16 16:51) Cbc With Automated Diff (08/29/16 16:51) Comprehensive Metabolic Panel (08/29/16 16:51) Hcg,Qualitative Serum (08/29/16 16:51) Lipase (08/29/16 16:51) Ua Culture If Indicated (08/29/16 16:51) Fentanyl Injection (Sublimaze Injection (08/29/16 16:51) Ns Iv 500 Ml (Sodium Chloride 0.9%) (08/29/16 16:51) Ondansetron Injection (Zofran Injectio (08/29/16 17:00) Promethazine Injection (Phenergan Injec (08/29/16 17:00) Lipid Panel (08/29/16 16:51) Promethazine Injection (Phenergan Injec (08/29/16 16:52) Ns Iv 500 Ml (Sodium Chloride 0.9%) (08/29/16 16:53) Straight Cath (Urinary) (08/29/16 18:28) Ua Culture If Indicated (08/29/16 18:28) Ns Iv 1000 Ml (Sodium Chloride 0.9%) (08/29/16 18:30) Ceftriaxone Injection (Rocephin Injectio (08/29/16 18:30) Hepatitis Panel Acute (08/29/16 18:28) Ondansetron Injection (Zofran Injectio (08/29/16 18:30) Medications Given in ED Current Medications Medications Dose Ordered Sig/Lalo Route Start Time Stop Time Status Last Admin Dose Admin Ceftriaxone Sodium 2000 mg/ Sodium Chloride 50 ml @ 100 mls/hr ONCE ONCE IV 08/29/16 18:30 08/29/16 18:59 DC 08/29/16 18:56 100 MLS/HR Ondansetron HCl 4 mg ONCE ONCE IVP 08/29/16 17:00 08/29/16 17:01 DC 08/29/16 17:02 4 MG Ondansetron HCl 4 mg ONCE ONCE IVP 08/29/16 18:30 08/29/16 18:35 DC 08/29/16 18:56 4 MG Promethazine HCl 25 mg ONCE ONCE IVP 08/29/16 17:00 08/29/16 17:01 DC 08/29/16 17:02 25 MG Sodium Chloride 500 ml @ 0 mls/hr Q0M ONCE IV 08/29/16 16:51 08/29/16 16:57 DC 08/29/16 17:02 500 MLS/HR Vital Signs/I&O Vital Sign - Last 12Hours 08/29/16 16:30 Temp 99.2 Pulse 93 Resp 18 B/P (MAP) 147/81 Pulse Ox 100 Progress Note : Time: 18:23 Progress Note Patient still with intractable nausea vomiting and not able to keep anything down after Zofran and Phenergan and IV fluids. Her enzymes are elevated her liver but her amylase and lipase are normal. She has a history of some inflammation around her pancreas on the CT from 2 days ago. She is having intractable nausea and vomiting and poor by mouth intake as well as constipation for a week so an observation stay with fluids and IV medicines would be indicated. She may also need a MRCP to workup her elevated transaminases in the morning. Departure Communication Time/Spoke to Admitting Phy: 18:[address] Shawn [facility]. Discussed the case culture was mixed lamonte so we will put her on empiric Rocephin and get a straight catheter, nausea meds and IV fluids overnight. Because of transaminases we'll get a half panel and consider possible MRCP in the morning. Impression Impression: Primary Impression: Urinary tract infection Qualified Codes: N30.01 - Acute cystitis with hematuria Additional Impression: Nausea and vomiting Qualified Codes: R11.2 - Nausea with vomiting, unspecified Disposition: 09 ADMITTED INPATIENT (obs) Condition: Stable Decision to Admit Reason: Admit from ER (General) Decision to Admit/Date: Aug 29, 2016 Time/Decision to Admit Time: 18:28 Departure-Patient Inst. Referrals: MAURICIO KLEIN MD (PCP/Family) Primary Care Physician Copy Copies To 1: MAURICIO KLEIN MD, TITUS J Aug 29, 2016 16:51
[2016-08-29] MEDS ORDERED: ONDANSETRON 4 MG/2 ML (SDV) Z0FRAN ONE (16:52)
[2016-08-29] MEDS ORDERED: fentaNYL INJECTION 100 MCG/2 ML AMP ONE (16:52)
[2016-08-29] MEDS ORDERED: PROMETHAZINE INJ 25 MG/ML (PHENERGAN) AMP ONE (16:52)
[2016-08-29] MEDS ORDERED: ONDA4TAB10 PO (16:53)
[2016-08-29] MEDS ORDERED: NS IV 500 ML 500 ML ONE (16:53)
[2016-08-29] MEDS ORDERED: NORG1TAB15 (16:53)
[2016-08-29] MEDS ORDERED: PROMETHAZINE INJ 25 MG/ML (PHENERGAN) AMP IVP ONE (17:00)
[2016-08-29] MEDS ORDERED: ONDANSETRON 4 MG/2 ML (SDV) Z0FRAN IVP ONE ×2 (17:00→18:30)
[2016-08-29 17:37] LABS: BILIRUBIN,URINE NEGATIVE (NEGATIVE); KETONES,URINE 4+ (NEGATIVE); LEUKOCYTE ESTERASE ,URINE 1+ (NEGATIVE); NITRITE,URINE NEGATIVE (NEGATIVE); PH,URINE 6 (5-9); PROTEIN,URINE 2+ (NEGATIVE); UROBILINOGEN,URINE 1 MG/DL (NORMAL)
[2016-08-29 17:37] LABS: BASOPHILS % (AUTO) 0 % (0-10); EOSINOPHILS # (AUTO) 0.1 10^3/uL (0.0-0.3); EOSINOPHILS % (AUTO) 1 % (0-10); LYMPHOCYTES # (AUTO) 2.2 X 10^3 (1.0-4.0); LYMPHOCYTES % (AUTO) 33 % (12-44); MEAN CORPUSCULAR HEMOGLOBIN 29 PG (25-34); MEAN CORPUSCULAR HGB CONC 34 G/DL (32-36); MEAN CORPUSCULAR VOLUME 86 FL (80-99); MEAN PLATELET VOLUME 11.8 FL (7.4-10.4); MONOCYTES # (AUTO) 0.4 X 10^3 (0.0-1.0); MONOCYTES % (AUTO) 6 % (0-12); NEUTROPHILS # (AUTO) 3.9 X 10^3 (1.8-7.8); NEUTROPHILS % (AUTO) 59 % (42-75); PLATELET COUNT 238 10^3/uL (130-400); RED BLOOD COUNT 4.54 10^6/uL (4.35-5.85); RED CELL DISTRIBUTION WIDTH 12.5 % (10.0-14.5); WHITE BLOOD COUNT 6.6 10^3/uL (4.3-11.0)
[2016-08-29 17:46] LABS: CALCIUM OXALATE CRYSTALS,UR FEW /LPF; SQUAMOUS EPITHELIAL CELL,UR 25-50 /HPF
[2016-08-29 18:02] LABS: ALANINE AMINOTRANSFERASE 77 U/L (0-55); ALBUMIN 4.2 G/DL (3.2-4.5); AMYLASE 53 U/L (25-125); ANION GAP 22 MMOL/L (5-14); ASPARTATE AMINO TRANSFERASE 57 U/L (5-34); BILIRUBIN,TOTAL 0.5 MG/DL (0.1-1.0); BLOOD UREA NITROGEN 6 MG/DL (7-18); BUN/CREATININE RATIO 8; CALCIUM 8.9 MG/DL (8.5-10.1); CARBON DIOXIDE 15 MMOL/L (21-32); CHLORIDE 103 MMOL/L (98-107); CHOLESTEROL 114 MG/DL (< 200); CREATININE SERUM 0.79 MG/DL (0.60-1.30); DIRECT LDL 44 MG/DL (1-129); GFR ESTIMATED > 60; GLUCOSE 77 MG/DL (70-105); LIPASE 53 U/L (8-78); POTASSIUM 3.4 MMOL/L (3.6-5.0); SODIUM 140 MMOL/L (135-145); TRIGLYCERIDES 78 MG/DL (<150); VLDL CHOLESTEROL 16 MG/DL (5-40)
[2016-08-29] MEDS ORDERED: NS IV 1000 ML 1,000 ML IV SCH (18:30)
[2016-08-29] MEDS ORDERED: cefTRIAXone INJECTION 2,000 MG in NS (IVPB) 50 ML IV ONE (18:30)
[2016-08-29] MEDS ORDERED: cefTRIAXone 1 GM (ROCEPHIN) VIAL ONE (18:44)
[2016-08-29 20:30] VITALS: BP 100/66
[2016-08-29] MEDS ORDERED: ACETAMINOPHEN 325 MG TABLET/CAPLET (TYLENOL) PO PRN (20:30)
[2016-08-29] MEDS ORDERED: ENOXAPARIN 40 MG/0.4 ML (LOVENOX) SYR SC SCH (20:30)
[2016-08-29] MEDS ORDERED: IBUPROFEN TABLET 200 MG TAB PO PRN (20:30)
[2016-08-29] MEDS ORDERED: NS W/KCL 20 MEQ/L 1,000 ML IV ONE (20:38)
[2016-08-29] MEDS ORDERED: ENOXAPARIN 40 MG/0.4 ML (LOVENOX) SYR ONE (20:38)
[2016-08-29] MEDS: NS W/KCL 20 MEQ/L 1,000 ML IV SCH (20:56)
[2016-08-29] MEDS ORDERED: PROMETHAZINE INJ 25 MG/ML (PHENERGAN) AMP IM PRN (21:00)
[2016-08-30] VITALS (8 sets, daily range): BP systolic 98–116; BP diastolic 56–80
[2016-08-30] MEDS: NS W/KCL 20 MEQ/L 1,000 ML IV SCH ×3 (03:52→18:07)
[2016-08-30 06:05] LABS: BASOPHILS % (AUTO) 0 % (0-10); EOSINOPHILS # (AUTO) 0.1 10^3/uL (0.0-0.3); EOSINOPHILS % (AUTO) 2 % (0-10); LYMPHOCYTES # (AUTO) 2.8 X 10^3 (1.0-4.0); LYMPHOCYTES % (AUTO) 63 % (12-44); MEAN CORPUSCULAR HEMOGLOBIN 29 PG (25-34); MEAN CORPUSCULAR HGB CONC 33 G/DL (32-36); MEAN CORPUSCULAR VOLUME 87 FL (80-99); MEAN PLATELET VOLUME 12.6 FL (7.4-10.4); MONOCYTES # (AUTO) 0.4 X 10^3 (0.0-1.0); MONOCYTES % (AUTO) 9 % (0-12); NEUTROPHILS # (AUTO) 1.2 X 10^3 (1.8-7.8); NEUTROPHILS % (AUTO) 26 % (42-75); PLATELET COUNT 222 10^3/uL (130-400); RED BLOOD COUNT 3.85 10^6/uL (4.35-5.85); RED CELL DISTRIBUTION WIDTH 12.6 % (10.0-14.5); WHITE BLOOD COUNT 4.5 10^3/uL (4.3-11.0)
[2016-08-30 06:28] LABS: ALANINE AMINOTRANSFERASE 54 U/L (0-55); ALBUMIN 3.2 G/DL (3.2-4.5); ANION GAP 15 MMOL/L (5-14); ASPARTATE AMINO TRANSFERASE 32 U/L (5-34); BILIRUBIN,TOTAL 0.3 MG/DL (0.1-1.0); BLOOD UREA NITROGEN 4 MG/DL (7-18); BUN/CREATININE RATIO 6; CALCIUM 8.1 MG/DL (8.5-10.1); CARBON DIOXIDE 15 MMOL/L (21-32); CHLORIDE 111 MMOL/L (98-107); CREATININE SERUM 0.71 MG/DL (0.60-1.30); GFR ESTIMATED > 60; GLUCOSE 68 MG/DL (70-105); POTASSIUM 3.6 MMOL/L (3.6-5.0); SODIUM 141 MMOL/L (135-145); TOTAL PROTEIN 5.4 G/DL (6.4-8.2)
--- NOTE | 2016-08-30 08:09 | History & Physicial ---
History of Present Illness History of Present Illness Reason for visit/HPI PT IS A 31 Y/O FEMALE WHO IS KNOWN TO ME FROM CLINIC. SHE PRESENTED TO THE HOSPITAL WITH INTRACTABLE NAUSEA, EMESIS, AND UNABLE TO KEEP DOWN ANY FLUIDS OVER THE PAST FEW DAYS. SHE HAD BEEN TO THE EMERGENCY DEPT ON TUESDAY - ADVISED OF KIDNEY STONES, ELEVATED LIVER ENZYMES, POSSIBLE PANCREATITIS, GIVEN FLUIDS AND ADVISED TO PUSH FLUIDS. Date of Admission Aug 29, 2016 at 18:40 I consulted on this patient on 08/30/16 08:09 Attending Physician mauricio lewis md Admitting Physician Mauricio Lewis MD Consult Allergies and Home Medications Allergies Coded Allergies: Penicillins (Verified Allergy, Unknown, 08/29/16) RASH Home Medications Cefdinir 300 Mg Capsule, 300 MG PO twice a day, #14 Prescribed by: JCARLOS ROQUE on 08/27/16 1800 Ferrous Sulfate 325 Mg Tablet, 1 TAB PO BID, #30 (Reported) Norgestimate-Ethinyl Estradiol 1 Each Tablet, #28 (Reported) Ondansetron HCl 4 Mg Tablet, #60 (Reported) Oxycodone Hcl/Acetaminophen 1 Each Tablet, 1 EACH PO Q4H, #20 As needed for breakthrough pain Prescribed by: FRANCISCO SEGURA on 02/22/12 2108 Pantoprazole Sodium 40 Mg Tablet., #30 (Reported) Past Pmnsxao-Bgotcj-Qcfxpj Hx Patient Social History Marrital Status: Living Status: LIVES AT HOME WITH SPOUSE Employed/Student: employed Alcohol Use: Rarely Uses Recreational Drug Use: No Smoking Status: Never a Smoker 2nd Hand Smoke Exposure: No Physical Abuse Screen: No Sexual Abuse: No Recent Foreign Travel: No Contact w/other who traveled: No Recent Hopitalizations: Yes (GASTRIC SLEEVE) Recent Infectious Disease Expo: No Immunizations Up To Date Date of Influenza Vaccine: Feb 22, 2012 Seasonal Allergies Seasonal Allergies: No Surgeries HX Surgeries: Yes (GASTRIC SLEEVE) Surgeries: Section Respiratory Hx Respiratory Disorders: No Cardiovascular Hx Cardiovascular Disorders: No Neurological Hx Neurological Disorders: No Reproductive System Hx Reproductive Disorders: No Genitourinary Hx Genitourinary Disorders: No Gastrointestinal Hx Gastrointestinal Disorders: No Musculoskeletal Hx Musculoskeletal Disorders: No Endocrine Hx Endocrine Disorders: No HEENT HX ENT Disorders: No Cancer Hx Cancer: No Psychosocial Hx Psychiatric Problems: No Blood Transfusions Hx Blood Disorders: No Adverse Reaction to a Blood Tr: No Reviewed Nursing Assessment Reviewed/Agree w Nursing PMH: Yes Family Medical History Significant Family History: Hypertension Constitutional: malaise, weakness EENTM: No hoarseness, No mouth pain, No throat swelling Respiratory: No cough, No dyspnea on exertion Cardiovascular: No chest pain, No palpitations Gastrointestinal: RUQ, LUQ, abdominal pain, No constipation, No diarrhea, nausea, vomiting Genitourinary: no symptoms reported Musculoskeletal: No back pain, muscle weakness Skin: change in color (BRUISING ACROSS EPIGASTRIUM) Psychiatric/Neurological: Denies Anxiety All Other Systems Reviewed Negative Unless Noted: Yes Physical Exam Vital Signs Vital Sign - Last 12Hours 08/29/16 08/29/16 16:30 20:30 Temp 99.2 Pulse 93 Resp 18 B/P (MAP) 147/81 Pulse Ox 100 O2 Delivery Room Air Capillary Refill : Less Than 3 Seconds General Appearance: No Apparent Distress, WD/WN Eyes: Bilateral Eye EOMI, Bilateral Eye Normal Inspection, Bilateral Eye PERRL HEENT: PERRL/EOMI, Pharynx Normal Neck: Full Range of Motion, Supple Respiratory: Chest Non Tender, Lungs Clear, Normal Breath Sounds, No Accessory Muscle Use Cardiovascular: Regular Rate, Rhythm, No Edema Gastrointestinal: Abnormal Bowel Sounds, Tenderness Rectal: Deferred Back: Normal Inspection, No CVA Tenderness, No Vertebral Tenderness Extremity: Normal Capillary Refill, Normal Inspection, Normal Range of Motion, Non Tender, No Pedal Edema Neurologic/Psychiatric: Alert, Oriented x3, No Motor/Sensory Deficits, Normal Mood/Affect Skin: Ecchymosis (ACROSS EPIGASTRIUM) Lymphatic: No Adenopathy Assessment/Plan Assessment and Plan ABDOMINAL PAIN NAUSEA EMESIS RECENT GASTRIC SLEEVE PANCREATITIS - MILD ABDOMINAL PAIN - ON PAIN MEDICATION NAUSEA AND EMESIS - PT ON IV ZOFRAN - MONITOR SYMPTOMS - RECENT GASTRIC SLEEVE - CONSULTATION TO DR. TOUSSAINT - DISCUSSED WITH HIS PA - ROBERT. HE WILL SEE HER TODAY. PANCREATITIS - MILD - CONTINUE WITH IV FLUIDS. Problems: Admission Diagnosis ABDOMINAL PAIN NAUSEA EMESIS RECENT GASTRIC SLEEVE PANCREATITIS - MILD Clinical Quality Measures DVT/VTE Risk/Contraindication: Risk Factor Score Per Nursin RFS Level Per Nursing on Admit: 2=Moderate MAURICIO LEWIS MD Aug 30, 2016 08:09
[2016-08-30] MEDS: PANTOPRAZOLE 40 MG/10 ML (PROTONIX) VIAL IV SCH ×2 (08:32→21:54)
[2016-08-30] MEDS: ENOXAPARIN 40 MG/0.4 ML (LOVENOX) SYR SC SCH (08:33)
[2016-08-30] MEDS: fentaNYL INJECTION 100 MCG/2 ML AMP IVP PRN ×3 (08:33→21:51)
[2016-08-30] MEDS ORDERED: LEVO1TAB9 PO (09:28)
[2016-08-30] MEDS ORDERED: CEFD300C3 PO (09:28)
[2016-08-30] MEDS ORDERED: OXYC-197 PO (09:28)
[2016-08-30] MEDS ORDERED: NYST1000 PO (09:28)
[2016-08-30] MEDS: ONDANSETRON 4 MG/2 ML (SDV) Z0FRAN IV PRN ×2 (09:45→16:15)
[2016-08-30] MEDS ORDERED: CATHETER FLUSH 10 ML SYR IV PRN (12:00)
--- NOTE | 2016-08-30 12:19 | Consultation ---
History of Present Illness History of Present Illness Patient Consulted On(harry/time) 08/30/16 12:14 Date of Admission 08/29/16 History of Present Illness This is a 31 year old female who is known to us. She is S/P Laparoscopic sleeve gastrectomy 3 weeks ago. She presented to the office 1 week ago for follow up and had what sounded like a UTI and was started on Levaquin. Since that time she has had increasing back as well as abdominal pain that was more on the left. She reports that she she developed N/V and worsening abdominal/ back pain Raman night and presented to the ER where lab work as well as a CT scan performed. Lab work showed slight UTI. CT scan showed cyst on head of the pancreas as well as bilateral kidney stones with the largest being 3mm. No stones in the ureters. She reports that she was discharged from the ER with antibiotics. She reports that her symptoms continued and presented back to the ER last night because of intractable N/V as well as abdominal/back pain. She reports today that she continues to have the nausea and abdominal/back pain. She denies any fever or chills. She did have lab work performed last night in the ER where her AST and ALT were elevated. She has had her gallbladder removed and drinks alcohol occasionally but not regularly. Allergies and Home Medications Allergies Coded Allergies: Penicillins (Verified Allergy, Unknown, 08/29/16) RASH Home Medications Cefdinir 300 Mg Capsule, 300 MG PO BID, (Reported) FILLED 08/27/16 #14 FOR A 7 DAY THERAPY Levonorgestrel-Ethin Estradiol 1 Each Tablet, 1 TAB PO DAILY, (Reported) Nystatin 100,000 Unit/1 Ml Oral.susp, 5 ML PO Q6H, (Reported) Ondansetron HCl 4 Mg Tablet, 4 MG PO EVERY 4-6 HOURS PRN for NAUSEA/VOMITING- 1ST LINE, (Reported) Oxycodone HCl/Acetaminophen 1 Each Tablet, 1 TAB PO EVERY 4-6 HOURS PRN for PAIN , (Reported) Pantoprazole Sodium 40 Mg Tablet.dr, 40 MG PO DAILY, (Reported) Past [id number]-Xkwfqi Hx Patient Social History Alcohol Use: Rarely Uses Recreational Drug Use: No Smoking Status: Never a Smoker 2nd Hand Smoke Exposure: No Recent Foreign Travel: No Contact w/Someone Who Travel: No Recent Infectious Disease Expo: No Recent Hopitalizations: Yes (GASTRIC SLEEVE) Physical Abuse Screen: No Sexual Abuse: No Immunizations Up To Date Date of Influenza Vaccine: Feb 22, 2012 Seasonal Allergies Seasonal Allergies: No Surgeries HX Surgeries: Yes (GASTRIC SLEEVE) Surgeries: Section Respiratory Hx Respiratory Disorders: No Cardiovascular Hx Cardiac Disorders: No Neurological Hx Neurological Disorders: No Reproductive System Hx Reproductive Disorders: No Genitourinary Hx Genitourinary Disorders: No Gastrointestinal Hx Gastrointestinal Disorders: No Musculoskeletal Hx Musculoskeletal Disorders: No Endocrine Hx Endocrine Disorders: No HEENT HX ENT Disorders: No Cancer Hx Cancer: No Psychosocial Hx Psychiatric Problems: No Blood Transfusions Hx Blood Disorders: No Adverse Reaction to a Blood Tr: No Reviewed Nursing Assessment Reviewed/Agree w Nursing PMH: Yes Family Medical History Significant Family History: Hypertension Review of Systems-General Constitutional: no symptoms reported EENTM: no symptoms reported Respiratory: no symptoms reported Cardiovascular: no symptoms reported Gastrointestinal: abdominal pain (LUQ and LLQ), nausea, vomiting Genitourinary: no symptoms reported Musculoskeletal: back pain Skin: other (Ecchymosis LUQ) Psychiatric/Neurological: No Symptoms Reported Physical Exam-General Problems Physical Exam Vital Signs Vital Sign - Last 12Hours 08/29/16 08/29/16 16:30 20:30 Temp 99.2 Pulse 93 Resp 18 B/P (MAP) 147/81 Pulse Ox 100 O2 Delivery Room Air Capillary Refill : Less Than 3 Seconds General Appearance: WD/WN, no apparent distress HEENT: PERRL/EOMI Neck: non-tender, full range of motion, supple, normal inspection Respiratory: chest non-tender, lungs clear, normal breath sounds, no respiratory distress, no accessory muscle use Cardiovascular: regular rate, rhythm, no edema Gastrointestinal: normal bowel sounds, soft, tenderness Back: CVA tenderness (R), CVA tenderness (L) Extremities: normal range of motion, non-tender, normal inspection, no pedal edema, no calf tenderness, normal capillary refill Neurologic/Psychiatric: alert, normal mood/affect, oriented x 3 Skin: normal color, warm/dry, ecchymosis (LUQ) Assessment/Plan Assessment/Plan Admission Diagnosis/Plan A 31 year old female S/P lap sleeve gastrectomy with intractable N/V most likely secondary to pancreatitis vs. Nephrolithiasis. AST and ALT improved. VSS. Continue IV fluids, pain and nausea medication. Will start clear liquid diet. Encourage ambulation. Clinical Quality Measures DVT/VTE Risk/Contraindication: Risk Factor Score Per Nursin RFS Level Per Nursing on Admit: 2=Moderate Copy Copies To 1: MAURICIO KLEIN MD; LIDIA TOUSSAINT MD, DUSTIN L APRN Aug 30, 2016 12:19
[2016-08-30] MEDS ORDERED: METOCLOPRAMIDE INJ 10 MG/2 ML (REGLAN) IVP PRN (12:45)
[2016-08-30] MEDS ORDERED: PROMETHAZINE INJ 25 MG/ML (PHENERGAN) AMP IVP PRN (12:45)
[2016-08-30] MEDS ORDERED: FLEET ENEMA ADULT 1 EA BTL PR PRN (17:45)
[2016-08-30] MEDS: FLEET ENEMA ADULT 1 EA BTL PR SCH (18:26)
[2016-08-30] MEDS ORDERED: cefTRIAXone INJECTION 1,000 MG in NS (IVPB) 50 ML IV SCH (19:00)
[2016-08-30] MEDS ORDERED: ONDANSETRON 4 MG (ZOFRAN) ORAL DISSOLVE TAB PO ONE (21:00)
--- NOTE | 2016-08-30 21:54 | Progress Note-Standard ---
Standard Progress Note Progress Notes/Assess & Plan Progress/Assessment & Plan consult for iv start. 24 g iv to left anterior side of wrist x 1 attempt. start time 2119 end time 2129 YARITZA RYAN CRNA Aug 30, 2016 21:54
[2016-08-31 04:00] VITALS: BP 100/52
[2016-08-31 06:06] LABS: MEAN PLATELET VOLUME 12.5 FL (7.4-10.4); RED BLOOD COUNT 4.01 10^6/uL (4.35-5.85); RED CELL DISTRIBUTION WIDTH 12.7 % (10.0-14.5); WHITE BLOOD COUNT 3.5 10^3/uL (4.3-11.0)
[2016-08-31 06:27] LABS: ALANINE AMINOTRANSFERASE 50 U/L (0-55); ALBUMIN 3.4 G/DL (3.2-4.5); ANION GAP 16 MMOL/L (5-14); ASPARTATE AMINO TRANSFERASE 27 U/L (5-34); BILIRUBIN,TOTAL 0.3 MG/DL (0.1-1.0); BLOOD UREA NITROGEN 2 MG/DL (7-18); BUN/CREATININE RATIO 3; CALCIUM 8.2 MG/DL (8.5-10.1); CARBON DIOXIDE 14 MMOL/L (21-32); CHLORIDE 110 MMOL/L (98-107); CREATININE SERUM 0.69 MG/DL (0.60-1.30); GFR ESTIMATED > 60; GLUCOSE 76 MG/DL (70-105); POTASSIUM 3.8 MMOL/L (3.6-5.0); SODIUM 140 MMOL/L (135-145); TOTAL PROTEIN 5.5 G/DL (6.4-8.2)
[2016-08-31 07:30] VITALS: BP 120/61
[2016-08-31] MEDS: FLEET ENEMA ADULT 1 EA BTL PR SCH (08:31)
[2016-08-31] MEDS: ENOXAPARIN 40 MG/0.4 ML (LOVENOX) SYR SC SCH (08:31)
[2016-08-31] MEDS: PANTOPRAZOLE 40 MG/10 ML (PROTONIX) VIAL IV SCH (08:31)
--- NOTE | 2016-08-31 09:29 | Progress Note (SOAP) ---
Subjective Subjective/Events-last exam PT REPORTS STILL FEELING NAUSEATED, AND LIKE SHE MAY VOMIT. SHE STILL HAS SOME PAIN IN HER ABDOMEN WELL. Review of Systems General: Fatigue HEENT: No Head Aches, No Visual Changes Pulmonary: No Dyspnea, No Cough Cardiovascular: No: Chest Pain Gastrointestinal: Abdominal Pain, Nausea Genitourinary: No Dysuria, Frequency Musculoskeletal: back pain Neurological: No: Confusion, Weakness Objective Exam Vital Signs Date Time Temp Pulse Resp B/P (MAP) Pulse Ox O2 Delivery O2 Flow Rate FiO2 08/31/16 07:30 98.6 64 18 120/61 98 Room Air 08/31/16 04:00 98.6 68 16 100/52 98 Room Air 08/30/16 23:16 98.4 73 20 105/68 99 Room Air 08/30/16 20:00 97.6 59 18 110/62 98 Room Air 08/30/16 15:48 98.0 62 18 113/57 100 Room Air 08/30/16 11:20 98.9 73 20 112/59 98 Room Air I & O 08/31/16 07:00 Intake Total 3020 ml Output Total 2225 ml Balance 795 ml Capillary Refill : Less Than 3 Seconds General Appearance: No Apparent Distress, WD/WN HEENT: Other ([place]ST[place]US TO RIGHT AND MILDLY TO LEFT) Neck: Full Range of Motion, Supple Respiratory: Chest Non Tender, Lungs Clear, Normal Breath Sounds, No Accessory Muscle Use Cardiovascular: Regular Rate, Rhythm, No Edema Gastrointestinal: tenderness (ACROSS EPIGASTRIUM), other (DECREASED BOWEL SOUNDS) Neurologic/Psychiatric: Alert, Oriented x3, Normal Mood/Affect Skin: Warm/Dry Lymphatic: No Adenopathy Results Lab Laboratory Tests 08/31/16 05:48: White Blood Count 3.5L, Red Blood Count 4.01L, Hemoglobin 11.5, Hematocrit 35, Mean Corpuscular Volume 87, Mean Corpuscular Hemoglobin 29, Mean Corpuscular Hemoglobin Concent 33, Red Cell Distribution Width 12.7, Platelet Count 192, Mean Platelet Volume 12.5H, Sodium Level 140, Potassium Level 3.8, Chloride Level 110H, Carbon Dioxide Level 14L, Anion Gap 16H, Blood Urea Nitrogen 2L, Creatinine 0.69, Estimat Glomerular Filtration Rate > 60, BUN/Creatinine Ratio 3 , Glucose Level 76, Calcium Level 8.2L, Total Bilirubin 0.3, Aspartate Amino Transf (AST/SGOT) 27, Alanine Aminotransferase (ALT/SGPT) 50, Alkaline Phosphatase 46, Total Protein 5.5L, Albumin 3.4 Assessment/Plan Assessment/Plan Assess & Plan/Chief Complaint ABDOMINAL PAIN NAUSEA EMESIS RECENT GASTRIC SLEEVE PANCREATITIS - MILD BPPV ABDOMINAL PAIN - ON PAIN MEDICATION NAUSEA AND EMESIS - PT ON IV ZOFRAN - MONITOR SYMPTOMS - RECENT GASTRIC SLEEVE - CONSULTATION TO DR. TOUSSAINT - DISCUSSED WITH HIS PA - ROBERT. THEY ARE DOING STUDIES, WAITING ON REPORT. PANCREATITIS - MILD - CONTINUE WITH IV FLUIDS. BPPV - START SCOPOLAMINE PATCH AND MECLIZINE Clinical Quality Measures DVT/VTE Risk/Contraindication: Risk Factor Score Per Nursin RFS Level Per Nursing on Admit: 2=Moderate MAURICIO KLEIN MD Aug 31, 2016 09:29
[2016-08-31] MEDS ORDERED: SCOPOLAMINE 1.5 MG (TRANSDERM-SCOP) PATCH TOP SCH (09:30)
[2016-08-31] MEDS ORDERED: MECLIZINE 25 MG (ANTIVERT) TAB PO PRN (09:30)
[2016-08-31] MEDS ORDERED: NS IV 1000 ML 1,000 ML IV SCH (09:30)
[2016-08-31] MEDS: ONDANSETRON 4 MG/2 ML (SDV) Z0FRAN IV PRN (09:56)
--- NOTE | 2016-08-31 10:37 | Diagnostic Imaging Report ---
EXAMINATION: Gastrografin upper GI study with double contrast. INDICATION: Nausea and vomiting after gastric sleeve surgery. FLUOROSCOPY TIME: 1 minute and 49 seconds. TECHNIQUE: A field coordinator image of the abdomen was performed. Subsequently, the patient was given Gastrografin for oral ingestion . Swallowing through the esophagus and barium coating of the stomach and the duodenum was observed with fluoroscopy and overhead images as well as multiple spot images in the upright and supine positions. Multiple overhead images of the esophagus, stomach, and duodenum were also obtained subsequently. FINDINGS: The field coordinator image of the abdomen demonstrates surgical clips in the upper abdomen. The esophagus is normal in caliber. There is mild dilatation in the distal esophagus with nodular mucosa which could relate to esophagitis, potentially related to reflux. There was no significant reflux demonstrated during this exam, however. Postsurgical changes are seen in the stomach. There is an area of mild narrowing seen in the mid stomach. It is uncertain if this represents post operative edema or spasm during this study; however, this does not appear to impede the flow of Gastrografin into the distal stomach. There is also prompt emptying of the stomach into the duodenum and the small bowel seen on this exam. No abnormal extravasation of contrast from the stomach. IMPRESSION: 1. Nodularity of the distal esophagus is suggestive of esophagitis. 2. There is an area of nonspecific moderate focal narrowing in the mid aspect of the stomach. It is uncertain if this is an expected post operative finding or due to spasm or stricture. This does not impede the flow of Gastrografin, however, into the distal stomach. There is prompt emptying of Gastrografin into the duodenum. Correlate clinically and consider endoscopic evaluation. Dictated by: Dictated on workstation # [id number]
[2016-08-31 12:00] VITALS: BP 114/55
--- NOTE | 2016-08-31 14:16 | Progress Note (SOAP) ---
Subjective Subjective/Events-last exam doing better today. UGI did not show stricture or leak. tolerating clears now. no abd pain. Objective Exam Vital Signs Date Time Temp Pulse Resp B/P (MAP) Pulse Ox O2 Delivery O2 Flow Rate FiO2 08/31/16 07:30 98.6 64 18 120/61 98 Room Air 08/31/16 04:00 98.6 68 16 100/52 98 Room Air 08/30/16 23:16 98.4 73 20 105/68 99 Room Air 08/30/16 20:00 97.6 59 18 110/62 98 Room Air 08/30/16 15:48 98.0 62 18 113/57 100 Room Air I & O 08/31/16 07:00 Intake Total 3020 ml Output Total 2225 ml Balance 795 ml Capillary Refill : Less Than 3 Seconds General Appearance: No Apparent Distress HEENT: PERRL/EOMI Neck: Full Range of Motion Respiratory: Chest Non Tender, Lungs Clear, Normal Breath Sounds Cardiovascular: Regular Rate, Rhythm Gastrointestinal: normal bowel sounds, non tender, soft Extremity: Normal Capillary Refill Neurologic/Psychiatric: Alert, Oriented x3 Skin: Normal Color Lymphatic: No Adenopathy Results Lab Laboratory Tests 08/31/16 05:48: White Blood Count 3.5L, Red Blood Count 4.01L, Hemoglobin 11.5, Hematocrit 35, Mean Corpuscular Volume 87, Mean Corpuscular Hemoglobin 29, Mean Corpuscular Hemoglobin Concent 33, Red Cell Distribution Width 12.7, Platelet Count 192, Mean Platelet Volume 12.5H, Sodium Level 140, Potassium Level 3.8, Chloride Level 110H, Carbon Dioxide Level 14L, Anion Gap 16H, Blood Urea Nitrogen 2L, Creatinine 0.69, Estimat Glomerular Filtration Rate > 60, BUN/Creatinine Ratio 3 , Glucose Level 76, Calcium Level 8.2L, Total Bilirubin 0.3, Aspartate Amino Transf (AST/SGOT) 27, Alanine Aminotransferase (ALT/SGPT) 50, Alkaline Phosphatase 46, Total Protein 5.5L, Albumin 3.4 Assessment/Plan Assessment/Plan Assess & Plan/Chief Complaint nausea/vomiting and dehydration s/p lap gastric sleeve resection. appears to be normal post surgical changes. mild abd pain however nephrolithiasis detected and now asymptomatic. normal UGI. continue phase 2 soft diet for another week then regular high protein diet. zofran ODT. home when ok with PMD Clinical Quality Measures DVT/VTE Risk/Contraindication: Risk Factor Score Per Nursin RFS Level Per Nursing on Admit: 2=Moderate LIDIA TOUSSAINT MD Aug 31, 2016 14:16
[2016-08-31] MEDS ORDERED: ONDA8TAB9 PO (14:34)
[2016-08-31] MEDS ORDERED: MECL-106 PO (16:13)
--- NOTE | 2016-08-31 16:15 | Discharge Inst-Complex ---
PDI Med Rec & Follow Up Appt. New Medications: Ondansetron (Zofran Odt) 8 Mg Tab.rapdis 8 MG PO Q4H PRN for NAUSEA/VOMITING-1ST LINE, #90 TAB Meclizine HCl (Meclizine HCl) 25 Mg Tablet 12.5 MG PO TID PRN for VERTIGO for 30 Days, #45 TAB 1 Refill Continued Medications: Cefdinir (Cefdinir) 300 Mg Capsule 300 MG PO BID, CAP FILLED 08/27/16 #14 FOR A 7 DAY THERAPY Levonorgestrel-Ethin Estradiol (Aviane-28 Tablet) 1 Each Tablet 1 TAB PO DAILY Nystatin (Nystatin) 100,000 Unit/1 Ml Oral.susp 5 ML PO Q6H Ondansetron HCl (Ondansetron HCl) 4 Mg Tablet 4 MG PO EVERY 4-6 HOURS PRN for NAUSEA/VOMITING-1ST LINE Oxycodone HCl/Acetaminophen (Percocet 5-325 mg Tablet) 1 Each Tablet 1 TAB PO EVERY 4-6 HOURS PRN for PAIN, TAB Pantoprazole Sodium (Pantoprazole Sodium) 40 Mg Tablet. 40 MG PO DAILY Prescription: Transmitted to Pharmacy Activity, Diet and PDI Resume Normal Activity: Yes Discharge Diet: Other Diet (resume diet as directed by dr morgan) Diet for 24 Hours: No Alcohol Diet After 24 Hours: Clear Liquid if Nauseous Drink 6-8 Glasses of Fluid/Day: Yes Driving Instructions: No Driving for 24 Hours Symptoms to Reoprt to : Appetite Changes, Fever Over 101 Degrees F, Diarrhea (Persistant), Dizziness/Fainting, Nausea/Vomiting For Problems or Questions: Contact Your Physician, Go to Emergency Room MAURICIO KLEIN MD Aug 31, 2016 16:15
--- NOTE | 2016-08-31 16:16 | Discharge Summary ---
Diagnosis/Chief Complaint Date of Admission Aug 31, 2016 at 09:22 Date of Discharge Discharge Date: Aug 31, 2016 Discharge Time: 1630 Admission Diagnosis Admission Diagnosis ABDOMINAL PAIN NAUSEA EMESIS RECENT GASTRIC SLEEVE PANCREATITIS - MILD Discharge Diagnosis ABDOMINAL PAIN NAUSEA EMESIS RECENT GASTRIC SLEEVE PANCREATITIS - MILD Reason Hospital Visit PT IS A 31 Y/O FEMALE WHO IS KNOWN TO ME FROM CLINIC. SHE PRESENTED TO THE HOSPITAL WITH INTRACTABLE NAUSEA, EMESIS, AND UNABLE TO KEEP DOWN ANY FLUIDS OVER THE PAST FEW DAYS. SHE HAD BEEN TO THE EMERGENCY DEPT ON TUESDAY - ADVISED OF KIDNEY STONES, ELEVATED LIVER ENZYMES, POSSIBLE PANCREATITIS, GIVEN FLUIDS AND ADVISED TO PUSH FLUIDS. Discharge Summary Discharge Physical Examination Allergies: Coded Allergies: Penicillins (Verified Allergy, Unknown, 08/29/16) RASH Vitals & I&Os General Appearance: Alert, Oriented X3, Cooperative HEENT: Atraumatic, PERRLA Respiratory: Clear to Auscultation, Normal Air Movement Cardiovascular: Regular Rate Abdominal: Normal Bowel Sounds, Soft, No Tenderness Extremities: No Clubbing, No Cyanosis Skin: No Rashes, No Significant Lesion Neuro: Normal Speech, Cranial Nerves 3-12 NL Psych/Mental Status: Mental Status NL, Mood NL Hospital Course ABDOMINAL PAIN NAUSEA EMESIS RECENT GASTRIC SLEEVE PANCREATITIS - MILD ABDOMINAL PAIN - ON PAIN MEDICATION NAUSEA AND EMESIS - PT ON IV ZOFRAN - MONITOR SYMPTOMS - RECENT GASTRIC SLEEVE - CONSULTATION TO DR. TOUSSAINT - - SEE A COPY OF HIS REPORT BELOW. PANCREATITIS - MILD - CONTINUE WITH IV FLUIDS. nausea/vomiting and dehydration s/p lap gastric sleeve resection. appears to be normal post surgical changes. mild abd pain however nephrolithiasis detected and now asymptomatic. normal UGI. continue phase 2 soft diet for another week then regular high protein diet. zofran ODT. home when ok with PMD Discharge Condition at discharge IMPROVED Instructions to patient/family Please see electonic discharge instructions given to patient. Discharge Medications Reviewed and agree with Discharge Medication list on patient's Discharge Instruction sheet Clinical Quality Measures DVT/VTE Risk/Contraindication: Risk Factor Score Per Nursin RFS Level Per Nursing on Admit: 2=Moderate MAURICIO KLEIN MD Aug 31, 2016 16:16
[2016-08-31 16:22] VITALS: BP 125/69
[2016-08-31 17:15] VITALS: BP 125/69
--- OUTSIDE RECORDS SUMMARY | 2016-10-03 06:04 | XMS REPORT | Continuity of Care Document ---
Demographics Preferred Language Unknown Marital Status Unknown Jainism Affiliation Unknown Race Unknown Ethnic Group Unknown Author Author [facility] Address Unknown Phone Unavailable Allergies Active Description Code Type Severity Reaction Onset Reported/Identified Relationship to Patient Clinical Status Yes Penicillins [id number] Drug Allergy Unknown N/A 08/29/2016 Medications Problems [...] Procedures Code [place] [address] TB TEST INTRADERMAL 08/25/2012 Results Test Result [...] Status Pt. Type Provider Facility Loc./Unit Complaint [id number] 08/25/2012 15:48:00 08/25/2012 23: 59:59 CLS Outpatient
== END 2016-08-31 17:10 | disposition home or self-care (01) | DRG 640 ==
LOC: EDUNIT# 16:27 → ER 16:28 → 4TH 18:40 → UNDOADMOB 18:40 → 4TH 20:30 → INTOOBSV 08-31 09:22 → OBSVTOIN 08-31 09:22 → ENPENDDIS 08-31 16:30 → UNDODISIN 08-31 17:10
PROVIDERS: ADMIT Family Medicine; ATTEND Family Medicine
DX: E86.0 Dehydration (principal); K85.90 Acute pancreatitis without necrosis or infection, unspecified; N20.0 Calculus of kidney; H81.10 Benign paroxysmal vertigo, unspecified ear
CPT/HCPCS: 36415; 74241; 80053; 80061; 80074; 81000; 82150; 83690; 84703; 85025; 85027; G0378

== ENCOUNTER → 2016-10-29 | Outpatient (CLI) | payer BC ==
[~2016-10-29] MED LIST changes: +LEVO1TAB9 PO; +MECL-106 PO; +NORG1TAB15; +NYST1000 PO; +ONDA4TAB10 PO; +ONDA8TAB9 PO; +OXYC-197 PO
--- NOTE | 2016-10-29 15:45 | Diagnostic Imaging Report ---
Indication: Left-sided flank pain, unable to urinate. Discussion: Single view of the abdomen was obtained, comparison 08/31/2016. There are punctate 3 mm densities projected over the left kidney, most consistent with nonobstructing renal calculi. There is no definite stone identified along the expected course of either ureter. Suspect additional 2 mm nonobstructing right renal calculi. No acute osseous abnormality. Unremarkable bowel gas pattern. Impression: 1. Nonobstructing bilateral renal calculi, not significantly changed from prior exam. Dictated by: Dictated on workstation # [id number]
== END | disposition home or self-care (01) ==
LOC: RAD 15:20
PROVIDERS: ATTEND Nurse Practitioner Family
DX: N20.0 Calculus of kidney (principal); Z87.442 Personal history of urinary calculi; R10.9 Unspecified abdominal pain
CPT/HCPCS: 74000

== ENCOUNTER → 2018-07-24 | Outpatient (CLI) | payer BC ==
[~2018-07-24] MED LIST changes: -OXYC-197 PO; +OXYC1TAB87 PO
[2018-07-24 14:46] LABS: ABSOLUTE RETIC # 44 10e9/L (24-90); RETICULOCYTE % 0.89 % (0.50-2.40)
[2018-07-24 15:15] LABS: BAND NEUTROPHILS 8 %; BASOPHILS % (MANUAL) 0 %; EOSINOPHILS % (MANUAL) 2 %; LYMPHOCYTES % (MANUAL) 33 %; MONOCYTES % (MANUAL) 7 %; NEUTROPHILS % (MANUAL) 50 %; RBC MORPH NORMAL
[2018-07-24 15:33] LABS: WHITE BLOOD COUNT 3.1 10^3/uL (4.3-11.0)
[2018-07-24 15:34] LABS: BASOPHILS % (AUTO) 0 % (0-10); EOSINOPHILS # (AUTO) 0.1 10^3/uL (0.0-0.3); EOSINOPHILS % (AUTO) 2 % (0-10); HEMATOCRIT 42 % (35-52); HEMOGLOBIN 13.8 G/DL (11.5-16.0); LYMPHOCYTES % (AUTO) 32 % (12-44); MEAN CORPUSCULAR HEMOGLOBIN 28 PG (25-34); MEAN CORPUSCULAR HGB CONC 33 G/DL (32-36); MEAN CORPUSCULAR VOLUME 86 FL (80-99); MONOCYTES # (AUTO) 0.2 X 10^3 (0.0-1.0); MONOCYTES % (AUTO) 6 % (0-12); NEUTROPHILS # (AUTO) 1.8 X 10^3 (1.8-7.8); NEUTROPHILS % (AUTO) 60 % (42-75); PLATELET COUNT 163 10^3/uL (130-400); RED CELL DISTRIBUTION WIDTH 13.3 % (10.0-14.5)
== END ==
LOC: LABNPT 08:13
PROVIDERS: ATTEND Nurse Practitioner Family
DX: D72.819 Decreased white blood cell count, unspecified (principal)
CPT/HCPCS: 85007; 85045

== ENCOUNTER → 2020-04-30 | Outpatient (CLI) | payer BC ==
[~2020-04-30] MED LIST changes: -MECL-106 PO; +MECL-149 PO; +ONDA-105 PO; -ONDA4TAB10 PO; -PANT40TA3 PO; +PANT40TA52 PO
--- NOTE | 2020-04-30 19:58 | Diagnostic Imaging Report ---
EXAM: OB ultrasound complete. DATE: April 30, 2020. COMPARISON: None. INDICATION: 34-year-old female, supervision of otherwise normal . FINDINGS: Multiple grayscale sonographic images were obtained of the gravid uterus. Overview: Within the uterus there is a single living gestation in cephalic position. There is positive movement and heart motion. heart rate was identified at 142 beats per minute. The amnionic fluid volume is normal with an amniotic fluid index of 12.7. The placenta is anterior and without previa. The cervical length is 3.9 cm. growth parameters are summarized in detail on the accompanying separate chart. The approximate mean gestational age by today's ultrasound measurements is 20 weeks 5 days +/- 1.5 week variability. Estimated weight based on today's measurements is 371 g. anatomic survey: The lateral ventricles appear somewhat oblique in orientation as they are imaged. The lateral ventricular size is measured up to 10.7 mm. There is no demonstrated abnormality of the posterior fossa. Longitudinal and transverse images of the spine appear unremarkable. There is visualization of the stomach, kidneys and urinary bladder. There is a normal four-chamber view of the heart. There is a three-vessel cord with an unremarkable insertion into the abdominal wall. 4 extremities are seen. The upper lip is not particularly well seen. The maternal ovaries are not well seen. There is no free pelvic fluid. IMPRESSION: 1. Single living intrauterine with approximate mean gestational age of 20 weeks 5 days +/- 1.5 week. 2. The lateral ventricles are measured mildly prominent in size at 10.7 mm. Continued follow-up and further evaluation is recommended. No additional demonstrated potential abnormality. Biometrical measurements are as follows: Biparietal 4.85 cm, age 20 weeks 5 days. Head circumference 18.20 cm, age 20 weeks 5 days. Abdominal circumference 15.95 cm, age 21 weeks 1 days. Femur length 3.29 cm, age 20 weeks 2 days. Sonographic estimate age: 20 weeks 5 days. Sonographic estimated date of delivery: 09/12/2020. Estimated Weight: 371 gm (+/- 54 gm). LMP percentile: 98%. heart rate: 142 beats per minute. number: 1 of 1. Dictated by: Dictated on workstation # [id number]
== END ==
LOC: RAD 14:59
PROVIDERS: ATTEND Nurse Practitioner Women's Health
DX: Z34.92 Encounter for supervision of normal pregnancy, unspecified, second trimester (principal); Z3A.20 20 weeks gestation of pregnancy
CPT/HCPCS: 76805

== ENCOUNTER → 2020-06-09 | Outpatient (CLI) | payer BC ==
--- NOTE | 2020-06-09 15:26 | Diagnostic Imaging Report ---
INDICATION: Follow-up ventricles. TECHNIQUE: Multiple real-time grayscale images were obtained over the gravid uterus. COMPARISON: 04/30/2020. FINDINGS: There is a single live fetus in a breech presentation. heart rate was recorded at 153 bpm. Placenta is anterior. Amniotic fluid volume is normal. Cervical length is 4.1 cm. ventricles measure approximately 6 to 7 mm. IMPRESSION: Normal ventricles. No complicating features are detected. Dictated by: Dictated on workstation # [id number]
== END ==
LOC: RAD 10:00
PROVIDERS: ATTEND Obstetrics & Gynecology
DX: O28.3 Abnormal ultrasonic finding on antenatal screening of mother (principal); Z3A.00 Weeks of gestation of pregnancy not specified
CPT/HCPCS: 76816

== ENCOUNTER 2020-08-14 12:53 | Outpatient (CLI) | payer BC ==
[~2020-08-14] VITALS: Ht 172.7 cm; Wt 111.3 kg
[2020-08-14 12:48] VITALS: BP 107/65
[2020-08-14 13:05] VITALS: BP 107/65
[2020-08-14] MEDS ORDERED: PREN-102 PO (13:09)
[2020-08-14] MEDS ORDERED: SERT25TA PO (13:09)
[2020-08-14] MEDS ORDERED: PANT40TA2 PO (13:10)
[2020-08-14] MEDS ORDERED: BUSP15TA60 PO (13:10)
[2020-08-14 13:24] LABS: BILIRUBIN,URINE NEGATIVE (NEGATIVE); CLARITY,URINE CLEAR; COLOR,URINE YELLOW; GLUCOSE, URINE (UA) NEGATIVE (NEGATIVE); KETONES,URINE NEGATIVE (NEGATIVE); LEUKOCYTE ESTERASE ,URINE NEGATIVE (NEGATIVE); NITRITE,URINE NEGATIVE (NEGATIVE); PROTEIN,URINE NEGATIVE (NEGATIVE)
[2020-08-14 13:32] LABS: BACTERIA,URINE FEW /HPF; RBC,URINE 50-100 /HPF; WBC,URINE RARE /HPF
--- NOTE | 2020-08-15 15:57 | Physician Query-Final Dx ---
YANICK ROBERTO 08/15/20 1557: Final Diagnosis Give Final Diagnosis Please give Final Diagnosis VIKTORIA TRIMBLE MD 08/15/20 1939: Final Diagnosis Give Final Diagnosis False labor at 35 weeks gestation YANICK ROBERTO Aug 15, 2020 15:57 VIKTORIA TRIMBLE MD Aug 15, 2020 19:39
== END 2020-08-14 14:50 ==
LOC: LDRP 12:53 → WSo 12:53
PROVIDERS: ATTEND Obstetrics & Gynecology
DX: O47.03 False labor before 37 completed weeks of gestation, third trimester (principal); Z3A.35 35 weeks gestation of pregnancy
CPT/HCPCS: 81000; 87210; G0463; 99214

== ENCOUNTER → 2020-08-21 | Outpatient (CLI) | payer BC ==
[~2020-08-21] MED LIST changes: +BUSP15TA60 PO; +PANT40TA2 PO; +PREN-102 PO; +SERT25TA PO
== END ==
LOC: LABNPT 16:27
PROVIDERS: ATTEND Obstetrics & Gynecology
DX: R03.0 Elevated blood-pressure reading, without diagnosis of hypertension (principal)
CPT/HCPCS: 82570; 84156

== ENCOUNTER 2020-09-01 17:04 | Outpatient (CLI) | payer BC ==
[~2020-09-01] VITALS: Ht 175.3 cm; Wt 114.4 kg
[2020-09-01 17:30] VITALS: BP 120/68
[2020-09-01 17:42] LABS: BILIRUBIN,URINE NEGATIVE (NEGATIVE); CLARITY,URINE CLOUDY; COLOR,URINE YELLOW; GLUCOSE, URINE (UA) NEGATIVE (NEGATIVE); KETONES,URINE TRACE (NEGATIVE); LEUKOCYTE ESTERASE ,URINE TRACE (NEGATIVE); NITRITE,URINE NEGATIVE (NEGATIVE); PH,URINE 6.5 (5-9); PROTEIN,URINE 1+ (NEGATIVE)
[2020-09-01 18:03] LABS: BACTERIA,URINE MODERATE /HPF; WBC,URINE 0-2 /HPF
--- NOTE | 2020-09-02 10:15 | Physician Query-Final Dx ---
CAMELIA MELGAR 09/02/20 1015: Clinic Account Progress/Dx Physician Query: Please give diagnosis Please include # weeks gestation Date of Service Sep 01, 2020 at 17:04 VIKTORIA TRIMBLE MD 09/03/20 0821: Clinic Account Progress/Dx DIAGNOSIS: Diagnosis false labor at 37 weeks CAMELIA MELGAR Sep 02, 2020 10:15 VIKTORIA TRIMBLE MD Sep 03, 2020 08:21
== END 2020-09-01 18:58 ==
LOC: LDRP 17:04 → WSo 17:04
PROVIDERS: ATTEND Obstetrics & Gynecology
DX: O42.92 Full-term premature rupture of membranes, unspecified as to length of time between rupture and onset of labor (principal); Z3A.38 38 weeks gestation of pregnancy
CPT/HCPCS: 81000; G0463; 99214

== ENCOUNTER 2020-09-03 06:59 | Outpatient (CLI) | payer BC ==
[~2020-09-03] VITALS: Ht 175.3 cm; Wt 109.1 kg
[2020-09-05] MEDS ORDERED: ACHD5005 PO (08:49)
[2020-09-05] MEDS ORDERED: IBUP-844 PO (08:49)
[2020-09-05] MEDS ORDERED: DCS100C PO (08:49)
== END 2020-09-03 13:22 | disposition home or self-care (01) ==
LOC: PREOP 06:59 → EDSTATUS 13:00 → PREOP 13:22
PROVIDERS: ATTEND Obstetrics & Gynecology
DX: Z01.818 Encounter for other preprocedural examination (principal)

== ENCOUNTER 2020-09-05 07:58 | Inpatient (IN) | payer BC ==
[~2020-09-05] VITALS: Ht 175.3 cm; Wt 112.0 kg
[2020-09-05] VITALS (19 sets, daily range): BP systolic 89–132; BP diastolic 56–91
[2020-09-05] MEDS ORDERED: fentaNYL INJ 100 MCG/2 ML AMP ONE (08:23)
[2020-09-05] MEDS ORDERED: OXYTOCIN PRE-MIX DRIP 500 ML IV ONE ×2 (08:23)
[2020-09-05] MEDS ORDERED: ceFAZolin 2 GM IV Premixed 50 ML ONE (08:25)
[2020-09-05] MEDS ORDERED: CITRIC ACID/SOB CIT (BICITRA) 30 ML UDC ONE (08:25)
[2020-09-05] MEDS ORDERED: METOCLOPRAMIDE INJ 10 MG/2 ML (REGLAN) ONE (08:25)
[2020-09-05] MEDS ORDERED: FAMOTIDINE 20MG/2ML IV (PEPCID) ONE (08:25)
[2020-09-05] MEDS ORDERED: CATHETER FLUSH 10 ML SYR IV PRN (08:30)
[2020-09-05] MEDS ORDERED: LACTATED RINGERS 1,000 ML IV PRN (08:30)
[2020-09-05] MEDS ORDERED: ceFAZolin 2 GM IV Premixed 50 ML IV ONE (08:30)
[2020-09-05] MEDS ORDERED: FAMOTIDINE 20MG/2ML IV (PEPCID) IV ONE (08:30)
[2020-09-05] MEDS ORDERED: METOCLOPRAMIDE INJ 10 MG/2 ML (REGLAN) IV ONE (08:30)
[2020-09-05] MEDS ORDERED: CITRIC ACID/SOB CIT (BICITRA) 30 ML UDC PO ONE (08:30)
[2020-09-05] MEDS: LACTATED RINGERS 1,000 ML IV PRN ×2 (08:37→08:59)
--- NOTE | 2020-09-05 08:44 | History & Physical-OB ---
OB - Chief Complaint & HPI Date/Time Date of Admission: Date of Admission: Date seen by a Provider: Sep 05, 2020 Time Seen by a Provider: 08:15 Chief Complaint/History OB-Reason for Admission/Chief: Onset of Labor Hx : 3 Hx Para: 3 Expected Date of Delivery: Sep 16, 2020 Gestational Age in Weeks: 38 Gestational Age in Days: 3 Indication for : desires repeat Admission Nurse Assessment Rev: Yes History of Labs A pos Antibody neg RNI RPR NR HBsAg NR HIV NR GC neg GBS neg Allergies and Home Medications Allergies Coded Allergies: Penicillins (Verified Allergy, Unknown, 08/29/16) RASH Home Medications Buspirone HCl 15 Mg Tablet, 15 MG PO DAILY, (Reported) Meclizine HCl 25 Mg Tablet, 12.5 MG PO TID PRN for VERTIGO Prescribed by: MAURICIO KLEIN on 08/31/16 1613 Pantoprazole Sodium 40 Mg Tablet.dr, 40 MG PO DAILY, (Reported) Vits #93/Iron Fum/FA 1 Each Tablet, 1 EACH PO DAILY, (Reported) Sertraline HCl 25 Mg Tablet, 25 MG PO DAILY, (Reported) Patient Home Medication List Home Medication List Reviewed: Yes OB - History Hx of Present Care: Yes Ultrasounds: Normal mid trimester US Obstetrical Complications: None Medical Complications: None Obstetrical History Hx Termination: No Hx Multiple Gestation: Yes (This ) Hx Stillbirth: No Hx Complication: No Hx Induced Hypertens: Yes (This ) Hx Maternal Gestational Diabet: No Delivery History Hx Dystocia: No Hx Large For Gestational Age I: No Hx Small for Gestational Age I: No Hx Section: No Hx Vaginal Delivery Post C-Sec: No Hx Blood Disorders: No Adverse Rxn to Tranfusion: No Patient Past Medical History n/a Social History/Family History 2nd Hand Smoke Exposure: No Immunizations Tetanus Booster (TDap): Unknown Date of Influenza Vaccine: Feb 22, 2020 OB - Admission Exam Physical Exam HEENT: NCAT Heart: Rhythm Normal Lungs: Clear Abdomen: Gravid Extremities: Normal Reflexes: Normal Cervical Dilatation: 4cm Effacement: 75% Station: -1 Membranes: Intact Heart Rate: 130's Accelerations: Accelerations Present Decelerations: No Decelerations Short Term Variability: Present Chcf Variability: Average (6-25) Contractions on Admission: < 5 Minutes Apart Intensity: Firm Labs Laboratory Tests Test 09/05/20 08:25 Range/Units OB - Assessment/Plan/Diagnosis Assessment Assessment: section Admission Dx 35 yo @ 38.4 Active labor Previous Admission Status: Inpatient Order (span 2 midnights) Reason for Inpatient Admission: Repeat at term Plan Plan: Section REMINGTON MOSS DO Sep 05, 2020 08:44
[2020-09-05] MEDS ORDERED: ONDANSETRON 4 MG/2 ML (SDV) Z0FRAN IVP PRN (08:45)
[2020-09-05] MEDS ORDERED: TETANUS,DIPTH,PERTUSS P/F (BOOSTRIX) 0.5 ML VIAL IM SCH (08:45)
[2020-09-05] MEDS ORDERED: OXYTOCIN PRE-MIX DRIP 500 ML IV SCH (08:45)
[2020-09-05] MEDS ORDERED: MEASLES,MUMPS,RUBELLA 1 EA INJ SC SCH (08:45)
--- NOTE | 2020-09-05 08:47 | Discharge Inst-Women's Service ---
Discharge Inst-Women's Serv Depart Medication/Instructions New, Converted or Re-Newed RX: RX on Chart Final Diagnosis POD 2 RLTCS Problems Reviewed?: Yes Consults/Follow Up Additional Follow Up: Yes Orders/Referrals Dr. Mandel in 7-10 days and in 6 weeks Activity Activity: Activity as Tolerated Driving Instructions: No Driving for 1 Week NO SMOKING: NO SMOKING Nothing Inside Vagina: No Douching, No [place], No Tampons Diet Discharge Diet: No Restrictions Symptoms to Report to : Bleeding Excessive, Pain Increased, Fever Over 101 Degrees F, Vaginal Bleeding Increase, Questions/Concerns For Any Problems or Questions: Contact Your Physician Skin/Wound Care Infection Signs and Symptoms: Increased Redness, Foul Odor of Wound, Increased Drainage, Skin Itchy or Has a Rash, Increased Swelling, Temperature Above 101 F Operative Area Clean and Dry: Keep Incision Clean/Dry Stitches/[place]/Dermabond: Dermabond, Care of Stitches Bathing Instructions: REMINGTON Paige DO Sep 05, 2020 08:47
[2020-09-05 08:48] LABS: BASOPHILS % (AUTO) 0 % (0-10); EOSINOPHILS % (AUTO) 0 % (0-10); HEMATOCRIT 33 % (35-52); HEMOGLOBIN 9.9 g/dL (11.5-16.0); LYMPHOCYTES # (AUTO) 1.5 10^3/uL (1.0-4.0); LYMPHOCYTES % (AUTO) 33 % (12-44); MEAN CORPUSCULAR HEMOGLOBIN 24 pg (25-34); MEAN CORPUSCULAR HGB CONC 30 g/dL (32-36); MEAN CORPUSCULAR VOLUME 79 fL (80-99); MEAN PLATELET VOLUME 11.7 fL (9.0-12.2); MONOCYTES # (AUTO) 0.4 10^3/uL (0.0-1.0); MONOCYTES % (AUTO) 8 % (0-12); NEUTROPHILS # (AUTO) 2.7 10^3/uL (1.8-7.8); NEUTROPHILS % (AUTO) 58 % (42-75); PLATELET COUNT 212 10^3/uL (130-400); WHITE BLOOD COUNT 4.6 10^3/uL (4.3-11.0)
[2020-09-05] MEDS ORDERED: ACHD5005 PO (08:49)
[2020-09-05] MEDS ORDERED: IBUP-844 PO (08:49)
[2020-09-05] MEDS ORDERED: DCS100C PO (08:49)
[2020-09-05] MEDS ORDERED: KETOROLAC 30 MG/ML VIAL ONE (09:29)
[2020-09-05] MEDS: KETOROLAC 30 MG/ML VIAL IV SCH ×3 (09:45→23:14)
[2020-09-05] MEDS ORDERED: BUPIVACAINE 0.5% 30 ML (SENSORCAINE) VIAL ONE (09:51)
[2020-09-05] MEDS: DOCUSATE SODIUM 100 MG (COLACE) CAP PO SCH ×2 (10:41→19:49)
[2020-09-05] MEDS ORDERED: CATHETER FLUSH 10 ML SYR IV SCH (14:00)
[2020-09-05] MEDS ORDERED: D5 LR IV SOLUTION 1,000 ML IV ONE ×2 (14:19→14:30)
--- NOTE | 2020-09-05 16:41 | OPERATIVE REPORT ---
DATE OF SERVICE: PREOPERATIVE DIAGNOSES: 1. A 35-year-old G3, P3 at 38 weeks and 4 days gestation. 2. Previous section. POSTOPERATIVE DIAGNOSES: 1. A 35-year-old G3, P3 at 38 weeks and 4 days gestation. 2. Previous section. 3. Active labor and nuchal cord x2. PROCEDURE: Repeat low transverse section. SURGEON: Sebastien Mandel DO ANESTHESIA: Spinal. ESTIMATED BLOOD LOSS: 700 mL. URINE OUTPUT: 35 mL. FLUIDS: 2100 mL lactated Ringer's solution. FINDINGS: Live female weighing 7 pounds 8 ounces, Apgars of 8 and 9. Grossly normal appearing uterus, bilateral fallopian tubes and ovaries. SPECIMEN SENT: None. INDICATIONS FOR PROCEDURE: This 35-year-old female is a patient who had sought care in my office. Her care was uncomplicated with the exception of labor before 39 weeks, prompted at 38 weeks and 4 days gestation. In the preoperative area and in her preoperative consultation, we have discussed risks of . They were reviewed again in the preoperative area including risk of bleeding, infection, damage to surrounding structures including, but not limited to bowel, bladder, ureter, kidneys, possible need for reoperation, risk from anesthesia, recovery timeframe, hospital stay. After all of her questions were answered, consent was obtained in the preoperative area and the patient was taken to the operating room. OPERATIVE REPORT IN DETAIL: Once in the operating room, spinal analgesia was found to be adequate. She was placed in supine position with leftward tilt, prepped and draped in normal sterile fashion. A timeout was performed. Anesthesia was tested. I then proceeded to make a Pfannenstiel skin incision through the previously existing scar using knife and carried down to underlying fascia using Bovie cautery. The fascial incision extended laterally using Bovie cautery. Superior aspect of fascial incision was then grasped with Eliud clamps, tented up and dissected off the underlying rectus muscles. The inferior aspect of the fascial incision was then grasped with Eliud clamps, tented up and dissected off the underlying rectus muscles. The rectus muscle dissected down the midline using Huerta scissors, which exposed the peritoneum, which I entered bluntly and extended using blunt traction. Mikhail ring retractor was placed in the peritoneal incision, which offers excellent lateral sidewall retraction. I identified the lower uterine segment, which was found to be thinned out, make a low transverse incision to the vesicouterine peritoneum and bluntly dissected off the lower uterine segment, creating a bladder flap. I then proceeded with myotomy until membranes were visualized, at which point extended the uterine incision laterally and superiorly using bandage scissors. Amniotomy was performed in the process of doing this, clear fluid was noted. Infant was found in vertex presentation. With gentle fundal pressure, the 's head was delivered through the incision where the nares and oropharynx were bulb suctioned and nuchal cord was reduced x2. Anterior and posterior shoulders were delivered and the infant was then brought to the operative field once the cord was dully clamped and cut and infant handed off to waiting nurses in attendance. Cord blood was collected, 3-vessel cord with intact placenta was delivered spontaneously thereafter. IV Pitocin was initiated to facilitate uterine contraction. Uterine fundus confirmed by bimanual massage. The uterus was exteriorized and cleared of all endometrial clots and debris. I then proceeded with closing the uterine incision using 0 Vicryl suture in a running locked fashion. Second layer of imbricating 0 Monocryl was placed. Excellent hemostasis was noted after doing this. I then placed the uterus back in the pelvis and copiously irrigated the pelvis using normal saline. Once again, there was no active bleeding noted from any of my dissection planes. I placed Interceed antiadhesive over my low transverse incision. I removed the Mikhail ring retractor and then proceeded with closing the peritoneum using 3-0 Vicryl suture in running fashion. The rectus muscle reapproximated using 3-0 Vicryl suture in interrupted fashion. The fascia was reapproximated using 0 Vicryl suture in running fashion. Subcutaneous tissue was reapproximated using 3-0 plain interrupted subcutaneous stitch and skin reapproximated using 4-0 Monocryl in a running subcuticular. Dermabond was applied to incision and sterile dressing was adhesed with white tape. The patient tolerated the procedure well and sent to recovery area in stable condition. Lap and sponge counts were correct at the end of the procedure. Instrument counts correct as well. Two grams of Ancef given preoperatively for infection prophylaxis. Job ID: [id number] DocumentID: [id number] Dictated Date: 09/05/2020 09:48:43 Tube Coremaker Date: 09/05/2020 16:40:53 Dictated By: DO FLOR DAMON
[2020-09-05] MEDS: HYDROcodone/APAP 5 MG/325 MG (LORTAB) TAB PO PRN ×2 (19:49→20:48)
[2020-09-06 01:15] VITALS: BP 121/63
[2020-09-06] MEDS: HYDROcodone/APAP 5 MG/325 MG (LORTAB) TAB PO PRN ×4 (01:18→16:33)
[2020-09-06 03:48] LABS: BASOPHILS % (AUTO) 0 % (0-10); EOSINOPHILS % (AUTO) 0 % (0-10); HEMATOCRIT 27 % (35-52); HEMOGLOBIN 8.3 g/dL (11.5-16.0); LYMPHOCYTES # (AUTO) 1.7 10^3/uL (1.0-4.0); LYMPHOCYTES % (AUTO) 24 % (12-44); MEAN CORPUSCULAR HEMOGLOBIN 25 pg (25-34); MEAN CORPUSCULAR HGB CONC 31 g/dL (32-36); MEAN CORPUSCULAR VOLUME 81 fL (80-99); MEAN PLATELET VOLUME 11.3 fL (9.0-12.2); MONOCYTES # (AUTO) 0.5 10^3/uL (0.0-1.0); MONOCYTES % (AUTO) 7 % (0-12); NEUTROPHILS # (AUTO) 4.9 10^3/uL (1.8-7.8); NEUTROPHILS % (AUTO) 69 % (42-75); PLATELET COUNT 172 10^3/uL (130-400); WHITE BLOOD COUNT 7.2 10^3/uL (4.3-11.0)
[2020-09-06 04:16] VITALS: BP 121/60
[2020-09-06] MEDS: KETOROLAC 30 MG/ML VIAL IV SCH (05:17)
[2020-09-06 08:30] VITALS: BP 121/67
--- NOTE | 2020-09-06 08:36 | Postpartum Progress Note ---
MICHEALNED Patrice MED STUDENT 09/06/20 0836: Note Note Day # 1 Subjective: Patient reports sharp pulling pain to the right edge of her incision that is sever and very brief. It only occurs when she transitions from lying to standing, but is otherwise absent. Her other pain is well controlled with oral medication. She additionally reports acid reflux which has been present for years and controlled on Protonix and she has not had her Protonix this morning. Otherwise she feels that she is doing well and has no other concerns. She is ambulating, voiding, and tolerating a regular diet without nausea or vomiting. Normal lochia. Objective: Vitals: -T: 36.5C -P: 74-85 -BP: 109-132/57-68 -O2: 98+ on RA Labs: -HGB: decreased from 9.9 to 8.3 -WBC : 7.2 -PLT: 172 -Blood type A Positive -Baby blood type A Positive -Antibody neg -RNI -RPR NR -HBsAg NR -HIV NR -GC neg -GBS neg Physical Exam: General - Sitting in bed holding baby girl (Gris). alert, oriented, and in no apparent distress Abdomen - Soft, appropriately tender to palpation, non-distended, fundus firm at umbilicus Extremities - no edema, negative Oscar's bilaterally Assessment: Savi Bertrand is a 35 post- day 1, status post repeat low transverse C/S at 38W4D due to presentation in labor. was notable for induced hypertension and a history of multiple gestations this . Recovering well, hemodynamically stable. Acute blood loss anemia on chronic anemia of Incisional pain Plan: Routine care. Encourage breast feeding. Encourage ambulation. Continue to monitor incisional pain Ferrous sulfate supplementation. Plan for discharge tomorrow Vitals - Labs Vital Signs - I&O Vital Signs Date Time Temp Pulse Resp B/P (MAP) Pulse Ox O2 Delivery O2 Flow Rate FiO2 09/06/20 04:16 36.3 74 16 121/60 (80) 98 Room Air 09/06/20 01:15 36.4 85 16 121/63 (82) 99 Room Air 09/05/20 23:20 36.3 77 16 116/64 (81) 99 Room Air 09/05/20 19:50 36.5 80 16 117/68 (84) 99 Room Air 09/05/20 18:23 36.9 80 20 132/65 (87) 99 Room Air 09/05/20 16:27 84 20 109/57 (74) 100 Room Air 09/05/20 15:11 100 Room Air 09/05/20 14:30 84 20 109/57 (74) 100 Room Air 09/05/20 13:30 79 20 114/57 (76) 100 Room Air 09/05/20 12:30 81 20 121/65 (83) 100 Room Air 09/05/20 12:00 90 20 108/60 (76) 100 Room Air 09/05/20 11:26 85 20 104/59 (74) 100 Room Air 09/05/20 10:58 85 20 104/59 (74) 100 Room Air 09/05/20 10:51 Room Air 09/05/20 10:51 36.7 18 105/67 (80) 100 Room Air 09/05/20 10:38 36.4 18 107/64 (78) 100 Room Air 09/05/20 10:38 Room Air 09/05/20 10:29 78 20 106/56 (73) 100 Room Air 09/05/20 10:15 37.0 18 89/70 (76) 100 Room Air 09/05/20 10:15 Room Air 09/05/20 10:05 Room Air 09/05/20 10:05 36.2 18 97/59 (72) 100 Room Air 09/05/20 09:58 69 20 117/76 (90) 100 Room Air 09/05/20 09:28 69 20 116/60 (78) 100 Room Air 09/05/20 08:59 36.7 70 20 113/68 (83) 100 Room Air I & O 09/06/20 07:00 Intake Total 6200 ml Output Total 2535 ml Balance 3665 ml Labs Laboratory Tests 09/06/20 03:22: White Blood Count 7.2, Red Blood Count 3.37L, Hemoglobin 8.3L, Hematocrit 27L, Mean Corpuscular Volume 81, Mean Corpuscular Hemoglobin 25, Mean Corpuscular Hemoglobin Concent 31L, Red Cell Distribution Width 18.5H, Platelet Count 172, Mean Platelet Volume 11.3, Immature Granulocyte % (Auto) 0, Neutrophils (%) (Auto) 69, Lymphocytes (%) (Auto) 24, Monocytes (%) (Auto) 7, Eosinophils (%) (Auto) 0, Basophils (%) (Auto) 0, Neutrophils # (Auto) 4.9, Lymphocytes # (Auto) 1.7, Monocytes # (Auto) 0.5, Eosinophils # (Auto) 0.0, Basophils # (Auto) 0.0, Immature Granulocyte # (Auto) 0.0 Microbiology 09/05/20 MRSA Screen - Final, Complete MRSA not isolated SEBASTIEN MOSS DO 09/06/20 1434: Note Note Verification and Attestation of Medical Student E/M Service Diagnosis/Assessment correction: POD 1 RLTCS Acute blood loss anemia A medical student performed and documented this service in my presence. I reviewed and verified all information documented by the medical student and made modifications to such information, when appropriate. I personally performed the physical exam and medical decision making. Sebastien Moss, Sep 06, 2020,14:34 NDE BURTON MED STUDENT Sep 06, 2020 08:36 SEBASTIEN MOSS DO Sep 06, 2020 14:34
[2020-09-06] MEDS: DOCUSATE SODIUM 100 MG (COLACE) CAP PO SCH ×2 (08:39→20:31)
[2020-09-06 12:30] VITALS: BP 134/79
[2020-09-06] MEDS: IBUPROFEN 600 MG (MOTRIN) TAB PO SCH ×2 (12:30→18:03)
--- NOTE | 2020-09-06 14:56 | Anesthesia-Regional Post-Op ---
Regional Patient Condition Mental Status: Alert, Oriented x3 Circulation: Same as Pre-Op Headache: Absent Sensation: Full Recovery Motor Block: Absent Post Op Complications Complications None Follow Up Care/Instructions Patient Instructions None needed. Anesthesia/Patient Condition Patient is doing well, no complaints, stable vital signs, no apparent adverse anesthesia problems. No complications reported per nursing. VIKASH LOPEZ CRNA Sep 06, 2020 14:56
[2020-09-06 16:36] VITALS: BP 109/79
[2020-09-06 20:30] VITALS: BP 111/59
[2020-09-07 00:16] VITALS: BP 117/64
[2020-09-07] MEDS: IBUPROFEN 600 MG (MOTRIN) TAB PO SCH ×3 (00:17→11:25)
[2020-09-07] MEDS: HYDROcodone/APAP 5 MG/325 MG (LORTAB) TAB PO PRN ×2 (00:18→08:03)
[2020-09-07 05:59] VITALS: BP 119/58
[2020-09-07] MEDS: DOCUSATE SODIUM 100 MG (COLACE) CAP PO SCH (08:03)
--- NOTE | 2020-09-07 08:15 | Postpartum Progress Note ---
NED BURTON MED STUDENT 09/07/20 0815: Note Note Day # 2 Subjective: Patient reports that her pain near the incision is much improved with pain medication and with icing. She states that she occasionally has sharp pain when sitting up but the pain is much improved from yesterday. Her other pain is well controlled with oral medication. She additionally reports that her acid reflux has improved. Otherwise she feels that she is doing well and has no other concerns. She is ambulating, voiding, and tolerating a regular diet without nausea or vomiting. Normal lochia and minimal cramping pain. Savi denies lightheadedness, shortness of breath, or palpitations. Objective: Vitals: -T: 36.3C -P: 70-90 -BP: 109-134/59-79 -O2: 98+ on RA Labs -from 09/06/20 -HGB: decreased from 9.9 to 8.3 -WBC : 7.2 -PLT: 172 -Blood type A Positive -Baby blood type A Positive -Antibody neg -RNI -RPR NR -HBsAg NR -HIV NR -GC neg -GBS neg Physical Exam: General - Sitting in chair. alert, oriented, and in no apparent distress Abdomen - Soft, appropriately tender to palpation, non-distended, fundus firm at umbilicus Extremities - no edema, negative Oscar's bilaterally Assessment: Savi Bertrand is a 35 post- day 2, status post repeat low transverse C/S at 38W4D due to presentation in labor. was notable for induced hypertension and a history of multiple gestations this . Recovering well, hemodynamically stable. DX: POD 2 RLTCS Acute blood loss anemia Plan: Routine care. Encourage breast feeding. Encourage ambulation. Ferrous sulfate supplementation. Plan for discharge today Vitals - Labs Vital Signs - I&O Vital Signs Date Time Temp Pulse Resp B/P (MAP) Pulse Ox O2 Delivery O2 Flow Rate FiO2 09/07/20 05:59 36.3 84 18 119/58 (78) 99 09/07/20 00:16 36.3 75 16 117/64 (81) 98 09/06/20 20:30 36.3 83 18 111/59 (76) 100 Room Air 09/06/20 16:36 36.4 79 18 109/79 (89) 100 Room Air 09/06/20 12:30 36.5 90 18 134/79 (97) 99 Room Air 09/06/20 08:30 36.3 70 18 121/67 (85) 99 Room Air I & O 09/07/20 07:00 Intake Total 1600 ml Output Total 2125 ml Balance -525 ml Labs Microbiology 09/05/20 MRSA Screen - Final, Complete MRSA not isolated SEBASTIEN MOSS DO 09/07/20 1034: Note Note Verification and Attestation of Medical Student E/M Service Plan for discharge today. A medical student performed and documented this service in my presence. I reviewed and verified all information documented by the medical student and made modifications to such information, when appropriate. I personally performed the physical exam and medical decision making. Sebastien Moss, Sep 07, 2020,10:34 NED BURTON MED STUDENT Sep 07, 2020 08:15 SEBASTIEN MOSS DO Sep 07, 2020 10:34
[2020-09-07 11:26] VITALS: BP 107/56
== END 2020-09-07 14:49 | disposition home or self-care (01) | DRG 787 ==
LOC: WSo 07:58 → LDRP 07:59 → WSo 08:21 → LDRP 14:29
PROVIDERS: ADMIT Obstetrics & Gynecology; ATTEND Obstetrics & Gynecology
PROC: 10D00Z1 Extraction of Products of Conception, Low, Open Approach (ICD-10-PCS; principal; 2020-09-05 09:01)
DX: O34.211 Maternal care for low transverse scar from previous cesarean delivery (principal); D62 Acute posthemorrhagic anemia; O69.81X0 Labor and delivery complicated by cord around neck, without compression, not applicable or unspecified; Z37.0 Single live birth; O99.02 Anemia complicating childbirth; D64.9 Anemia, unspecified; O90.81 Anemia of the puerperium; Z3A.38 38 weeks gestation of pregnancy; Z88.0 Allergy status to penicillin
CPT/HCPCS: 36415; 85025; 86850; 86900; 86901; 87081; 94664; 99212